=== PATIENT | male | born 1945 | race African-American/Black ===

== ENCOUNTER 2020-08-09 11:57 | Inpatient (IN) | payer SELFPAY ==
[~2020-08-09] VITALS: Ht 177.8 cm; Wt 63.5 kg
[2020-08-09] MEDS ORDERED: SUCCINYLCHOLINE CHLORIDE 200 MG/10 ML VIAL IV ONE (11:58)
[2020-08-09] MEDS ORDERED: ETOMIDATE 20 MG/10 ML VIAL IV ONE (11:58)
--- NOTE | 2020-08-09 12:07 | NUR ---
Pt BIB [address] for SOB. Pt alert and oriented x 1, pt tachyneic and heart rate irregular. Placed in 1B. Attached to bedside monitor. Dr. Vila and RT at bedside.
[2020-08-09] MEDS ORDERED: DEXAMETHASONE SOD PHOSPHATE 4 MG INJ IV ONE ×2 (12:15→18:00)
[2020-08-09] MEDS ORDERED: EPINEPHRINE 1:10,000 1 MG/10 ML DISP.SYRIN ONE (12:21)
[2020-08-09] MEDS ORDERED: DILTIAZEM HCL 25 MG IV ONE (12:23)
[2020-08-09] MEDS ORDERED: DILTIAZEM HCL 25 MG IV IV ONE (12:30)
--- NOTE | 2020-08-09 12:30 | NUR ---
Etomidate 20mg given by Dr. Vila prior to intubation.
--- NOTE | 2020-08-09 12:31 | NUR ---
succinylcholine 120mg given by Dr. Vila prior to intubation.
--- NOTE | 2020-08-09 12:33 | NUR ---
Pt intubated by Dr. Vila with 7.5 ETT, 23 cm at the the lip. RT Fitz and RT Renny present during intubation.
--- NOTE | 2020-08-09 12:35 | NUR ---
not available for ultrasound, pt is being intubated
[2020-08-09] MEDS: MIDAZOLAM HCL 50 MG in IV NORMAL SALINE 40 ML IV PRN ×5 (12:50→17:44)
--- NOTE | 2020-08-09 12:55 | NUR ---
Central line inserted by Dr. Vila
[2020-08-09 13:23] LABS: BASOPHILS # (AUTO) 0.2 K/uL (0.0-8.0); EOSINOPHILS % (AUTO) 0.1 % (0.0-7.0); HEMOGLOBIN 12.1 g/dL (12.5-16.3); LYMPHOCYTES # (AUTO) 0.4 K/uL (20.0-40.0); LYMPHOCYTES % (AUTO) 2.6 % (20.5-51.5); MEAN CORPUSCULAR HEMOGLOBIN 30.6 uug (23.8-33.4); MEAN CORPUSCULAR HGB CONC 32 g/dL (32.5-36.3); MEAN CORPUSCULAR VOLUME 96.1 fL (73.0-96.2); MONOCYTES # (AUTO) 0.9 K/uL (2.0-10.0); MONOCYTES % (AUTO) 5.3 % (0.0-11.0); NEUTROPHILS # (AUTO) 14.6 K/uL (1.8-8.9); PLATELET COUNT (AUTO) 347 K/uL (152-348); RED BLOOD CELL COUNT(AUTO) 3.95 MIL/uL (4.06-5.63); WHITE BLOOD COUNT (AUTO) 16.1 K/uL (3.6-10.2)
[2020-08-09 13:34] LABS: CARBON DIOXIDE 17 mmol/L (21-32); CHLORIDE 98 mmol/L (98-107); CREATININE 2.2 mg/dL (0.6-1.3); GLUCOSE 186 mg/dL (74-106); POTASSIUM 5.5 mmol/L (3.5-5.1); UREA NITROGEN, BLOOD 72 mg/dL (7-18)
[2020-08-09] MEDS ORDERED: FENTANYL CITRAT IV 1,000 MCG in IV NORMAL SALINE 80 ML IV PRN (13:45)
[2020-08-09] MEDS ORDERED: VANCOMYCIN IV 1,000 MG in IV DEXTROSE 5% 250 ML IV SCH (13:45)
[2020-08-09 13:47] LABS: ALANINE AMINOTRANSFERASE 21 U/L (16-63); ALKALINE PHOSPHATASE 83 U/L (50-136); ASPARTATE AMINOTRANSFERASE 39 U/L (15-37); BILIRUBIN,DIRECT 2.1 mg/dL (0.0-0.2); TOTAL PROTEIN, SERUM 6.9 g/dL (6.4-8.2)
[2020-08-09] MEDS ORDERED: PANTOPRAZOLE SODIUM 40 MG VIAL IV ONE (14:00)
[2020-08-09 14:04] LABS: ABG BASE EXCESS -9.4 mmol/L; ABG HCO3 15.9 mmol/L; ABG PH 7.301 (7.350-7.450); ABG PO2 132.5 mmHg (75.0-100.0); ABG SITE LEFT BRACHIAL; COHb 0.6 % (0.5-1.5); MetHb 0.3 % (0.0-1.5); O2Hb 97.5 % (94.0-97.0); VENT MODE VENT - A/C; VT, ABG 500 mL
[2020-08-09] MEDS ORDERED: DEXAMETHASONE SOD PHOSPHATE 10 MG INJ ONE ×2 (14:04→18:23)
[2020-08-09] MEDS ORDERED: PIPERACILLIN/TAZOBACTAM/D5W 50 ML IV ONE ×2 (14:05→22:05)
[2020-08-09] MEDS ORDERED: VANCOMYCIN IV 1,000 MG in IV DEXTROSE 5% 250 ML IV ONE (14:15)
[2020-08-09] MEDS: FENTANYL CITRAT IV 1,000 MCG in IV NORMAL SALINE 80 ML IV PRN ×2 (14:20→17:47)
[2020-08-09] MEDS: PIPERACILLIN SODIUM/TAZOBACTAM 3.375 G in IV DEXTROSE 5% 50 ML IV SCH ×2 (14:30→22:07)
--- NOTE | 2020-08-09 14:30 | NUR ---
Brower catheter inserted using sterile technique tolerated well.
[2020-08-09] MEDS ORDERED: IOHEXOL 300MG/ML 100 ML INFUS..BTL ONE (14:40)
[2020-08-09] MEDS: DEXAMETHASONE SOD PHOSPHATE 4 MG INJ IV ONE ×2 (14:40→14:42)
[2020-08-09] MEDS ORDERED: SWABABLE VALVE TRANSFER SET EA MC ONE (14:40)
[2020-08-09] MEDS ORDERED: IV NORMAL SALINE 250 ML IV ONE (14:40)
[2020-08-09] MEDS ORDERED: VANCOMYCIN IV 200 ML ONE (15:00)
--- NOTE | 2020-08-09 15:25 | NUR ---
Pt to CT on portable monitor accompanied by Renny RT and office technology instructor.
--- NOTE | 2020-08-09 15:42 | NUR ---
Returned back from CT
[2020-08-09 16:01] LABS: *BLOOD, URINE 3+ (NEGATIVE); *CLARITY,URINE CLOUDY (CLEAR); *COLOR,URINE YELLOW (YELLOW); *KETONES,URINE TRACE (NEGATIVE); *UROBILINOGEN,URINE >=8.0 E.U./dl (NORMAL); LEUKOCYTE ESTERASE ,URINE NEGATIVE (NEGATIVE); NITRITE, URINE NEGATIVE (NEGATIVE); UGLUCOSE NEGATIVE (NEGATIVE)
[2020-08-09 16:02] LABS: *BILIRUBIN,URIN 3+ (NEGATIVE)
[2020-08-09 16:10] LABS: *AMPHETAMINE, URINE NEGATIVE (NEGATIVE); *CANNABINOID, URINE NEGATIVE (NEGATIVE); *COCCAINE, URINE NEGATIVE (NEGATIVE); *OPIATE, URINE NEGATIVE (NEGATIVE); *PHENCYCLIDINE SCREEN,URINE NEGATIVE (NEGATIVE)
[2020-08-09 16:19] LABS: BACTERIA,URINE FEW /HPF (NONE SEEN); RBC,URINE 20-50 /HPF (0-3); SQUAMOUS EPITHELIAL CELL,UR FEW /HPF (NONE SEEN); URINE AMORPHOUS URATE MANY /HPF
--- NOTE | 2020-08-09 17:05 | NUR ---
OG tube inserted noted with gastic contents.
--- NOTE | 2020-08-09 18:59 | NUR ---
SBAR report given to Theo YING
[2020-08-09] MEDS ORDERED: MAGNESIUM HYDROXIDE 30 ML LIQUID UDC PO PRN (19:15)
[2020-08-09] MEDS ORDERED: ONDANSETRON 4 MG/2 ML VIAL IV PRN (19:15)
[2020-08-09] MEDS ORDERED: HYDROCODONE/APAP 5-325MG TABLET PO PRN (19:15)
[2020-08-09] MEDS ORDERED: ACETAMINOPHEN 325 MG TABLET PO PRN (19:15)
[2020-08-09] MEDS: IV NS 1000 ML 1,000 ML IV SCH (19:30)
[2020-08-09 21:20] LABS: ABG BASE EXCESS -5.1 mmol/L; ABG HCO3 22.2 mmol/L; ABG PCO2 50.9 mmHg (35.0-45.0); ABG PH 7.258 (7.350-7.450); ABG PO2 198.9 mmHg (75.0-100.0); ABG SITE RIGHT RADIAL; ABG TOTAL HEMOGLOBIN 12.4 G/dL (13.5-18.0); COHb 0.8 % (0.5-1.5); MetHb 0.3 % (0.0-1.5); O2Hb 98.3 % (94.0-97.0); VENT MODE VENT - A/C; VT, ABG 400 mL
--- NOTE | 2020-08-09 23:20 | NUR ---
Cristofer kuhn in [facility] - 08/10/20 at 0247 by KEY Called Respiratory for Ventilation Alarm, High PIP.
--- NOTE | 2020-08-09 23:20 | NUR ---
Called Respiratory for Ventilator Alarm, High PIP.
--- NOTE | 2020-08-09 23:25 | NUR ---
Called [facility] to page Dr. Cespedes.
--- NOTE | 2020-08-09 23:29 | NUR ---
Code Blue. Vault Cashier and RT at bedside, compressions started.
--- NOTE | 2020-08-09 23:46 | NUR ---
Administered epinephrine to IV right forearm 20G
--- NOTE | 2020-08-09 23:49 | NUR ---
Administered bicarb to IV on right forearm 20G Addendum: 08/10/20 at 0124 by KEY Administered Calcium carb on IV right forearm 20G
--- NOTE | 2020-08-09 23:52 | NUR ---
Administed bicarb on IV right forearm 20G, then 2nd dose of Epinephrine.
--- NOTE | 2020-08-09 23:54 | NUR ---
Administered 3rd dose of Epinephrine to IV on right forearm 20G
--- NOTE | 2020-08-09 23:55 | NUR ---
Patient shocked on Vfib.
--- NOTE | 2020-08-09 23:56 | NUR ---
Administered 4th Epinephrine on IV on right forearm 20G
--- NOTE | 2020-08-09 23:57 | NUR ---
Code Blue cleared. Patient has pulse.
[2020-08-10] MEDS ORDERED: PIPERACILLIN SODIUM/TAZOBACTAM 3.375 G in IV DEXTROSE 5% 50 ML IV SCH ×2
--- NOTE | 2020-08-10 00:03 | NUR ---
Cristofer kuhn in [facility] - 08/10/20 at 0504 by KEY Administered Amiodarone 150mg, HR 150.
--- NOTE | 2020-08-10 00:03 | NUR ---
Administered Amiodarone 150mg via IV on right forearm 20G. HR 162
[2020-08-10] MEDS ORDERED: NOREPINEPHRINE BITARTRATE 8 MG in IV NORMAL SALINE 242 ML IV PRN ×2 (00:15→10:15)
[2020-08-10] MEDS ORDERED: NOREPINEPHRINE BITARTRATE 4 MG/4 ML VIAL IV ONE (00:17)
[2020-08-10] MEDS: PANTOPRAZOLE SODIUM 40 MG VIAL IV SCH ×2 (00:50→09:00)
[2020-08-10 00:58] LABS: BASOPHILS # (AUTO) 0.1 K/uL (0.0-8.0); BASOPHILS % (AUTO) 0.4 % (0.0-2.0); EOSINOPHILS # (AUTO) 0.1 K/uL (0.0-0.7); EOSINOPHILS % (AUTO) 0.4 % (0.0-7.0); HEMATOCRIT 29.4 % (36.7-47.1); HEMOGLOBIN 9.3 g/dL (12.5-16.3); MEAN CORPUSCULAR HEMOGLOBIN 31.1 uug (23.8-33.4); MEAN CORPUSCULAR HGB CONC 32 g/dL (32.5-36.3); MEAN CORPUSCULAR VOLUME 98.5 fL (73.0-96.2); MONOCYTES # (AUTO) 0.3 K/uL (2.0-10.0); MONOCYTES % (AUTO) 2.3 % (0.0-11.0); NEUTROPHILS # (AUTO) 13.2 K/uL (1.8-8.9); NEUTROPHILS % (AUTO) 89.9 % (38.5-71.5); PLATELET COUNT (AUTO) 256 K/uL (152-348); RED BLOOD CELL COUNT(AUTO) 2.99 MIL/uL (4.06-5.63); WHITE BLOOD COUNT (AUTO) 14.7 K/uL (3.6-10.2)
[2020-08-10 01:05] LABS: CARBON DIOXIDE 22 mmol/L (21-32); CHLORIDE 103 mmol/L (98-107); CREATININE 2.6 mg/dL (0.6-1.3); GLUCOSE 238 mg/dL (74-106); POTASSIUM 5.3 mmol/L (3.5-5.1); UREA NITROGEN, BLOOD 78 mg/dL (7-18)
[2020-08-10] MEDS ORDERED: PANTOPRAZOLE SODIUM 40 MG VIAL ONE ×2 (01:39→12:34)
[2020-08-10] MEDS ORDERED: IV NORMAL SALINE 1000 ML BAG IV ONE (01:45)
[2020-08-10] MEDS ORDERED: PANTOPRAZOLE SODIUM IV 80 MG in IV DEXTROSE 5% 100 ML IV ONE (01:45)
[2020-08-10] MEDS: MIDAZOLAM HCL 50 MG in IV NORMAL SALINE 40 ML IV PRN (01:56)
--- NOTE | 2020-08-10 02:01 | NUR ---
Called [facility] to page Dr. Robby Alva.
--- NOTE | 2020-08-10 02:03 | NUR ---
Received call back from Dr. Robby Alva. New orders: Intermittent suction Protonix 40mg IV q12 hours.
[2020-08-10 03:29] LABS: HEMATOCRIT 32.6 % (36.7-47.1); HEMOGLOBIN 10.5 g/dL (12.5-16.3)
--- NOTE | 2020-08-10 06:50 | NUR ---
Report given to Roc espinosa.
[2020-08-10] MEDS ORDERED: PIPERACILLIN/TAZOBACTAM/D5W 50 ML IV ONE (06:52)
[2020-08-10] MEDS: PIPERACILLIN SODIUM/TAZOBACTAM 3.375 G in IV DEXTROSE 5% 50 ML IV SCH (06:55)
[2020-08-10] MEDS ORDERED: NOREPINEPHRINE BITARTRATE 32 MG in IV NORMAL SALINE 218 ML IV PRN (07:15)
--- NOTE | 2020-08-10 07:30 | NUR ---
PT IS RESTING IN BED 1B. NO S/S OF ACUTE DISTRESS AT THIS TIME. CONTINUE TO MONITOR THE PT.
[2020-08-10 09:24] LABS: VENT MODE VENT - A/C - PRVC; VT, ABG 400 mL
[2020-08-10] MEDS ORDERED: ENOXAPARIN SODIUM 60 MG/0.6 ML DISP.SYRIN SQ ONE ×2 (09:30→12:27)
[2020-08-10 09:43] LABS: ABG BASE EXCESS -3.4 mmol/L; ABG HCO3 23.2 mmol/L; ABG PCO2 48.6 mmHg (35.0-45.0); ABG PH 7.297 (7.350-7.450); ABG PO2 317.8 mmHg (75.0-100.0); ABG SITE LEFT BRACHIAL; ABG TOTAL HEMOGLOBIN 11.2 G/dL (13.5-18.0); COHb 0.1 % (0.5-1.5); MetHb 0.3 % (0.0-1.5); O2Hb 99.4 % (94.0-97.0)
--- NOTE | 2020-08-10 12:05 | NUR ---
SW checked in with ED RN Roc to inquire about patient's level of alertness and whether patient is able to be interviewed. Reason for social staff worker consultation is homelessness. Patient is a 75 year old male. Per ED physician's notes, patient was brought into the ED on 08/09 by paramedics for respiratory failure. STEPAN Brian stated that patient is currently intubated and sedated, and therefore not interviewable at this time. SW will follow-up with the patient at a later time.
[2020-08-10] MEDS: PIPERACILLIN/TAZO 2.25 G in IV DEXTROSE 5% 50 ML IV SCH ×2 (12:26→18:12)
[2020-08-10] MEDS: IV NS 1000 ML 1,000 ML IV SCH (12:40)
[2020-08-10 15:14] LABS: ALANINE AMINOTRANSFERASE 37 U/L (16-63); ALKALINE PHOSPHATASE 84 U/L (50-136); ASPARTATE AMINOTRANSFERASE 71 U/L (15-37); BASOPHILS # (AUTO) 0.1 K/uL (0.0-8.0); BASOPHILS % (AUTO) 0.7 % (0.0-2.0); BILIRUBIN,TOTAL 1.5 mg/dL (0.2-1.0); CARBON DIOXIDE 26 mmol/L (21-32); CHLORIDE 104 mmol/L (98-107); CHOLESTEROL 103 mg/dL (<200); CREATININE 2.8 mg/dL (0.6-1.3); GLUCOSE 189 mg/dL (74-106); HDL CHOLESTEROL 13 mg/dL (40-60); HEMATOCRIT 33.2 % (36.7-47.1); HEMOGLOBIN 10.6 g/dL (12.5-16.3); LYMPHOCYTES # (AUTO) 0.5 K/uL (20.0-40.0); LYMPHOCYTES % (AUTO) 2.6 % (20.5-51.5); MAGNESIUM 2.7 mg/dL (1.8-2.4); MEAN CORPUSCULAR HEMOGLOBIN 30.8 uug (23.8-33.4); MEAN CORPUSCULAR HGB CONC 32 g/dL (32.5-36.3); MEAN CORPUSCULAR VOLUME 96.3 fL (73.0-96.2); MONOCYTES # (AUTO) 0.9 K/uL (2.0-10.0); MONOCYTES % (AUTO) 5.1 % (0.0-11.0); NEUTROPHILS % (AUTO) 91.6 % (38.5-71.5); PHOSPHOROUS 6.7 mg/dL (2.5-4.9); PLATELET COUNT (AUTO) 226 K/uL (152-348); POTASSIUM 5.3 mmol/L (3.5-5.1); RED BLOOD CELL COUNT(AUTO) 3.45 MIL/uL (4.06-5.63); TOTAL PROTEIN, SERUM 6.1 g/dL (6.4-8.2); TRIGLYCERIDES 118 MG/DL (30-150); WHITE BLOOD COUNT (AUTO) 18.5 K/uL (3.6-10.2)
[2020-08-10 15:21] LABS: UREA NITROGEN, BLOOD 83 mg/dL (7-18)
--- NOTE | 2020-08-10 15:21 | NUR ---
Recieved critical BUN of 83 and lactic 2.4 Roc, primary RN made aware. Stated he'd follow up with .
[2020-08-10] MEDS ORDERED: VANCOMYCIN IV 750 MG in IV DEXTROSE 5% 250 ML IV ONE (15:30)
[2020-08-10] MEDS ORDERED: IV NORMAL SALINE 500 ML IV ONE (15:45)
[2020-08-10] MEDS ORDERED: IV NS 1000 ML 1,000 ML IV PRN (15:45)
[2020-08-10] MEDS ORDERED: PIPERACILLIN/TAZOBACTAM/D5W 50 ML ONE (18:10)
--- NOTE | 2020-08-10 18:57 | NUR ---
REPORT GIVEN TO OIL FILTERS INSPECTORLAY OUT FORMER.
--- NOTE | 2020-08-10 19:30 | NUR ---
Patient is resting in bed sedated, no signs of distress.
[2020-08-11] VITALS (15 sets, daily range): BP systolic 88–136; BP diastolic 30–89
[2020-08-11] MEDS ORDERED: PANTOPRAZOLE SODIUM 40 MG VIAL ONE ×2 (00:36→09:05)
[2020-08-11] MEDS ORDERED: PIPERACILLIN/TAZOBACTAM/D5W 50 ML ONE ×2 (00:37→09:03)
[2020-08-11] MEDS: PIPERACILLIN/TAZO 2.25 G in IV DEXTROSE 5% 50 ML IV SCH ×5 (00:50→23:45)
[2020-08-11] MEDS ORDERED: EPINEPHRINE 1:10,000 1 MG/10 ML DISP.SYRIN IV ONE (06:00)
[2020-08-11] MEDS ORDERED: CALCIUM CHLORIDE 1 GM/10 ML DISP.SYRIN IV ONE (06:00)
[2020-08-11] MEDS ORDERED: SODIUM BICARBONATE 8.4% 50 MEQ/50 ML DISP.SYRIN IV ONE (06:00)
[2020-08-11] MEDS ORDERED: AMIODARONE HCL 150 MG/3 ML VIAL IV ONE (06:00)
[2020-08-11 07:23] LABS: HEMATOCRIT 31.8 % (36.7-47.1); HEMOGLOBIN 10.1 g/dL (12.5-16.3); LYMPHOCYTES # (AUTO) 0.6 K/uL (20.0-40.0); LYMPHOCYTES % (AUTO) 2.8 % (20.5-51.5); MEAN CORPUSCULAR HEMOGLOBIN 31.1 uug (23.8-33.4); MEAN CORPUSCULAR HGB CONC 32 g/dL (32.5-36.3); MEAN CORPUSCULAR VOLUME 97.5 fL (73.0-96.2); MONOCYTES % (AUTO) 4.6 % (0.0-11.0); NEUTROPHILS # (AUTO) 20.3 K/uL (1.8-8.9); NEUTROPHILS % (AUTO) 92.6 % (38.5-71.5); PLATELET COUNT (AUTO) 222 K/uL (152-348); RED BLOOD CELL COUNT(AUTO) 3.26 MIL/uL (4.06-5.63); WHITE BLOOD COUNT (AUTO) 21.9 K/uL (3.6-10.2)
[2020-08-11 08:04] LABS: ABG BASE EXCESS -7.4 mmol/L; ABG HCO3 21.5 mmol/L; ABG PCO2 60.7 mmHg (35.0-45.0); ABG PH 7.168 (7.350-7.450); ABG PO2 128.7 mmHg (75.0-100.0); ABG SITE RIGHT RADIAL; ABG TOTAL HEMOGLOBIN 11.1 G/dL (13.5-18.0); COHb 0.2 % (0.5-1.5); MetHb 0.4 % (0.0-1.5); O2Hb 97.8 % (94.0-97.0); VENT MODE PRVC AC
[2020-08-11 08:07] LABS: CARBON DIOXIDE 22 mmol/L (21-32); CHLORIDE 104 mmol/L (98-107); GLUCOSE 131 mg/dL (74-106); MAGNESIUM 2.7 mg/dL (1.8-2.4); PHOSPHOROUS 7.2 mg/dL (2.5-4.9); POTASSIUM 5.5 mmol/L (3.5-5.1); VANCOMYCIN,RANDOM 18.5 ug/mL (18.0-26.0)
[2020-08-11 08:13] LABS: UREA NITROGEN, BLOOD 80 mg/dL (7-18)
--- NOTE | 2020-08-11 08:40 | NUR ---
Moved pt from room 1B to 4A. All systems okay.
[2020-08-11] MEDS: PANTOPRAZOLE SODIUM 40 MG VIAL IV SCH ×2 (09:20→20:40)
--- NOTE | 2020-08-11 09:28 | NUR ---
AUGUSTUS Lugo, called back. Gave him results of ABG.
--- NOTE | 2020-08-11 11:44 | NUR ---
Called pharmacy again to get Lovenox for pt. They stated they would bring it shortly.
[2020-08-11] MEDS: ENOXAPARIN SODIUM 60 MG/0.6 ML DISP.SYRIN SQ SCH (11:53)
[2020-08-11] MEDS ORDERED: ENOXAPARIN SODIUM 60 MG/0.6 ML DISP.SYRIN SQ ONE (11:55)
--- NOTE | 2020-08-11 13:10 | NUR ---
Pt PCR covid test was POSITIVE, Pt moved to room 3 for isolation. All systems okay. ICU not ready to accept pt yet.
[2020-08-11] MEDS ORDERED: SODIUM POLYSTYRENE SULFONATE 15 G/60 ML LIQUID UDC NG ONE (13:45)
[2020-08-11] MEDS ORDERED: VANCOMYCIN IV 500 MG in IV DEXTROSE 5% 100 ML IV ONE (14:00)
[2020-08-11] MEDS ORDERED: SODIUM POLYSTYRENE SULFONATE 15 G/60 ML LIQUID UDC ONE (14:03)
[2020-08-11] MEDS: MIDAZOLAM HCL 50 MG in IV NORMAL SALINE 40 ML IV PRN (15:16)
--- NOTE | 2020-08-11 15:16 | NUR ---
Changed out bag of Versed for new one (empty).
--- NOTE | 2020-08-11 15:31 | NUR ---
changed out empty FENTANYL bag for new one. changed out empty LEVOPHED bottle for new one.
[2020-08-11] MEDS: FENTANYL CITRAT IV 1,000 MCG in IV NORMAL SALINE 80 ML IV PRN (15:41)
--- NOTE | 2020-08-11 16:16 | NUR ---
Called report to STEPAN Browning
--- NOTE | 2020-08-11 17:00 | NUR ---
Dr. Rincon in the unit when pt got admitted.. report given
--- NOTE | 2020-08-11 18:16 | NUR ---
received pt from ER. noted with rectal temp 95.2. per nursing route supervisor, no heating machine/blankets available as all are in use. pt noted with HR in the 140s, informed Dr. Mcdonald with new order for stat ECG. ECG result relayed to Dr. Mcdonald
--- NOTE | 2020-08-11 18:32 | NUR ---
STAT ECH showing afib with RVR relayed to Dr. Ernst with new order for Amio bolus and per protoccol Addendum: 08/11/20 at 1835 by FEDERICO ARIAS RN STAT ECG
[2020-08-11] MEDS ORDERED: AMIODARONE HCL IV 150 MG in IV DEXTROSE 5% 100 ML IV ONE (18:45)
--- NOTE | 2020-08-11 18:56 | NUR ---
pt admitted from ER at around 1700. pt noted with excoriation/skin tear on penis & scrotum, full thickness loss on sacrococcyx area. endorsed to slot shift manager RN Brigette to take pictures. Amio bolus and drip not started, awaiting for pharmacy to deliver medications. endorse to nigiht shift to give when delivered
--- NOTE | 2020-08-11 19:18 | NUR ---
shift report given to retail shift leader RN Brigette.
--- NOTE | 2020-08-11 19:30 | NUR ---
Report received. Patient on COVId-19 isolation orally intubated and to mechanical ventilator. On continuous Fentanyl and Versed drips for sedation. HR 140's; Amiodarone bolus started. Also on Levophed drip for BP support. Assessment done; see flow sheet for complete documentation. Addendum: 08/12/20 at 0657 by FANI STEWART RN Amended: Links added.
[2020-08-11] MEDS: SODIUM BICARBONATE 8.4% 100 MEQ in IV 1/2NS 1000 ML 1,000 ML IV PRN (19:47)
[2020-08-11] MEDS: AMIODARONE HCL IV 450 MG in IV DEXTROSE 5% 250 ML IV PRN (19:51)
[2020-08-11] MEDS ORDERED: PHENYLEPHRINE 10 MG/1 ML VIAL ONE (20:56)
[2020-08-11] MEDS: PHENYLEPHRINE IV 50 MG in IV NORMAL SALINE 245 ML IV PRN (21:00)
--- NOTE | 2020-08-11 21:26 | NUR ---
Converted to SR with PVCs rate in the 80's. Addendum: 08/12/20 at 0652 by FANI STEWART RN Amended: Links added. Addendum: 08/12/20 at 0657 by FANI STEWART RN Amended: Links added.
[2020-08-11] MEDS: methylPREDNISolone SOD SUCC 125 MG/2 ML VIAL IV SCH (21:32)
[2020-08-11] MEDS ORDERED: Z GUARD REMEDY PASTE 57 GM TUBE TOP PRN (22:30)
[2020-08-12] VITALS (48 sets, daily range): BP systolic 82–122; BP diastolic 43–76
[2020-08-12] MEDS: AMIODARONE HCL IV 450 MG in IV DEXTROSE 5% 250 ML IV PRN ×2 (04:01→17:59)
[2020-08-12] MEDS: MIDAZOLAM HCL 50 MG in IV NORMAL SALINE 40 ML IV PRN (04:50)
[2020-08-12] MEDS: PIPERACILLIN/TAZO 2.25 G in IV DEXTROSE 5% 50 ML IV SCH ×4 (05:51→23:41)
[2020-08-12] MEDS: methylPREDNISolone SOD SUCC 125 MG/2 ML VIAL IV SCH ×3 (05:51→21:47)
--- NOTE | 2020-08-12 06:00 | NUR ---
Remains on same vent settings. O2 saturations above 94%. On: Neosynephrine drip @ 1.4 mcg/kg/min Fentanyl drip 50 mcg/H Versed drip 2 mg/H. Amiodarone drip 0.5mcg/min 1/2 NS with 2 amps of NaHCO3 @ 100ml/H See IV spread sheet for dosages/rates
[2020-08-12] MEDS: FENTANYL CITRAT IV 1,000 MCG in IV NORMAL SALINE 80 ML IV PRN (06:10)
[2020-08-12] MEDS: SODIUM BICARBONATE 8.4% 100 MEQ in IV 1/2NS 1000 ML 1,000 ML IV PRN ×2 (06:43→17:58)
[2020-08-12] MEDS: PANTOPRAZOLE SODIUM 40 MG VIAL IV SCH ×2 (08:14→20:38)
[2020-08-12] MEDS: ENOXAPARIN SODIUM 60 MG/0.6 ML DISP.SYRIN SQ SCH (08:15)
[2020-08-12] MEDS: Z GUARD REMEDY PASTE 57 GM TUBE TOP SCH ×2 (08:15→20:39)
[2020-08-12] MEDS: PHENYLEPHRINE IV 50 MG in IV NORMAL SALINE 245 ML IV PRN ×2 (08:44→19:48)
[2020-08-12 09:02] LABS: ABG BASE EXCESS -5.5 mmol/L; ABG HCO3 22.2 mmol/L; ABG PCO2 54.7 mmHg (35.0-45.0); ABG PH 7.227 (7.350-7.450); ABG PO2 141.4 mmHg (75.0-100.0); ABG SITE LEFT RADIAL; ABG TOTAL HEMOGLOBIN 10.2 G/dL (13.5-18.0); COHb 0.3 % (0.5-1.5); MetHb 0.4 % (0.0-1.5); O2Hb 98.2 % (94.0-97.0); VENT MODE VENT - A/C; VT, ABG 400 mL
[2020-08-12 13:26] LABS: BASOPHILS % (AUTO) 0.1 % (0.0-2.0); HEMATOCRIT 27.5 % (36.7-47.1); HEMOGLOBIN 8.8 g/dL (12.5-16.3); LYMPHOCYTES # (AUTO) 0.3 K/uL (20.0-40.0); LYMPHOCYTES % (AUTO) 1.9 % (20.5-51.5); MEAN CORPUSCULAR HEMOGLOBIN 30.8 uug (23.8-33.4); MEAN CORPUSCULAR HGB CONC 32 g/dL (32.5-36.3); MEAN CORPUSCULAR VOLUME 95.9 fL (73.0-96.2); MONOCYTES # (AUTO) 0.2 K/uL (2.0-10.0); MONOCYTES % (AUTO) 1.1 % (0.0-11.0); NEUTROPHILS # (AUTO) 16.2 K/uL (1.8-8.9); NEUTROPHILS % (AUTO) 96.9 % (38.5-71.5); PLATELET COUNT (AUTO) 148 K/uL (152-348); RED BLOOD CELL COUNT(AUTO) 2.87 MIL/uL (4.06-5.63); WHITE BLOOD COUNT (AUTO) 16.7 K/uL (3.6-10.2)
[2020-08-12 13:35] LABS: CARBON DIOXIDE 25 mmol/L (21-32); CHLORIDE 106 mmol/L (98-107); CREATININE 3.6 mg/dL (0.6-1.3); GLUCOSE 157 mg/dL (74-106); MAGNESIUM 2.6 mg/dL (1.8-2.4); POTASSIUM 5.2 mmol/L (3.5-5.1); VANCOMYCIN,RANDOM 18.6 ug/mL (18.0-26.0)
[2020-08-12 13:41] LABS: UREA NITROGEN, BLOOD 83 mg/dL (7-18)
--- NOTE | 2020-08-12 14:45 | NUR ---
PT.WAS SEEN BY BOB GIORDANO MD WITH NEW ORDERS.
--- NOTE | 2020-08-12 16:15 | NUR ---
DR.RAFFI BASILIO AT BEDSIDE,FOR HD ACC.INSERTION. TIME OUT DONE. UNABLE TO GET CONSENT,NO FAMILY.
--- NOTE | 2020-08-12 17:40 | NUR ---
PT. WAS SEEN BY ANGUS FARLEY MD
[2020-08-12] MEDS: AMIODARONE HCL 200 MG TABLET PO SCH (20:38)
[2020-08-13] VITALS (32 sets, daily range): BP systolic 102–152; BP diastolic 60–88
[2020-08-13] MEDS: FENTANYL CITRAT IV 1,000 MCG in IV NORMAL SALINE 80 ML IV PRN ×3 (02:17→23:02)
[2020-08-13] MEDS: Z GUARD REMEDY PASTE 57 GM TUBE TOP PRN (02:17)
[2020-08-13] MEDS: SODIUM BICARBONATE 8.4% 100 MEQ in IV 1/2NS 1000 ML 1,000 ML IV PRN (04:14)
[2020-08-13 05:15] LABS: BASOPHILS % (AUTO) 0.1 % (0.0-2.0); HEMATOCRIT 27.6 % (36.7-47.1); LYMPHOCYTES # (AUTO) 0.3 K/uL (20.0-40.0); LYMPHOCYTES % (AUTO) 1.5 % (20.5-51.5); MEAN CORPUSCULAR HEMOGLOBIN 31.2 uug (23.8-33.4); MEAN CORPUSCULAR HGB CONC 33 g/dL (32.5-36.3); MEAN CORPUSCULAR VOLUME 95.8 fL (73.0-96.2); MONOCYTES # (AUTO) 0.3 K/uL (2.0-10.0); MONOCYTES % (AUTO) 1.6 % (0.0-11.0); NEUTROPHILS # (AUTO) 17.6 K/uL (1.8-8.9); NEUTROPHILS % (AUTO) 96.8 % (38.5-71.5); PLATELET COUNT (AUTO) 146 K/uL (152-348); RED BLOOD CELL COUNT(AUTO) 2.88 MIL/uL (4.06-5.63); WHITE BLOOD COUNT (AUTO) 18.2 K/uL (3.6-10.2)
[2020-08-13] MEDS: PIPERACILLIN/TAZO 2.25 G in IV DEXTROSE 5% 50 ML IV SCH ×3 (05:21→22:28)
[2020-08-13] MEDS: methylPREDNISolone SOD SUCC 125 MG/2 ML VIAL IV SCH ×2 (05:21→13:03)
[2020-08-13 05:29] LABS: CARBON DIOXIDE 27 mmol/L (21-32); CHLORIDE 104 mmol/L (98-107); CREATININE 3.7 mg/dL (0.6-1.3); GLUCOSE 147 mg/dL (74-106); MAGNESIUM 2.6 mg/dL (1.8-2.4); PHOSPHOROUS 5.4 mg/dL (2.5-4.9); POTASSIUM 4.7 mmol/L (3.5-5.1); UREA NITROGEN, BLOOD 79 mg/dL (7-18)
--- NOTE | 2020-08-13 07:03 | NUR ---
Condition unchanged. Remains on same vent settings: AC=28, IE=226xg, PEEP=10 and FIO2=60%. O2 saturations above 95%. air sampling and monitoring: SR-ST with rare PVCs, PACs. Off Amiodarone drip since 209908/12/20; on Amiodarone via NGT. Adequately sedated with Diprivan drip at 50 mcg/kg/min. COVID isolation maintained. Addendum: 08/13/20 at 0704 by FANI STEWART RN Amended: Links added. Addendum: 08/13/20 at 0705 by FANI STEWART RN Notes is for another patient.
--- NOTE | 2020-08-13 07:05 | NUR ---
Remains on same vent settings: AC=24, SG=766uw, FIO2=50% and PEEP=5, O2 sats above 95%. BPs stable; off Neosynephrine drip since midnight. Also off Amidarone drip since 2100; on Amiodarone/NGT. On continuous Versed and Fentanyl drips at 3 mg/H and 50 mcg/H respectively.
[2020-08-13] MEDS: MIDAZOLAM HCL 50 MG in IV NORMAL SALINE 40 ML IV PRN ×2 (07:21→23:30)
[2020-08-13] MEDS: AMIODARONE HCL 200 MG TABLET PO SCH ×2 (08:20→20:29)
[2020-08-13] MEDS: PANTOPRAZOLE SODIUM 40 MG VIAL IV SCH (08:20)
[2020-08-13] MEDS: Z GUARD REMEDY PASTE 57 GM TUBE TOP SCH ×2 (08:21→20:31)
[2020-08-13 09:40] LABS: ABG BASE EXCESS -0.4 mmol/L; ABG HCO3 25.2 mmol/L; ABG PCO2 45.5 mmHg (35.0-45.0); ABG PH 7.361 (7.350-7.450); ABG PO2 75.7 mmHg (75.0-100.0); ABG SITE RIGHT RADIAL; ABG TOTAL HEMOGLOBIN 10.8 G/dL (13.5-18.0); COHb 0.1 % (0.5-1.5); MetHb 0.3 % (0.0-1.5); O2Hb 94.2 % (94.0-97.0); VENT MODE VENT - PRVC - A/C; VT, ABG 400 mL
--- NOTE | 2020-08-13 11:49 | NUR ---
WOUND CARE CONSULT: REVIEWED CHART, NURSING DOCUMENTATION AND PHOTOS WHICH INDICATE RASHES AND DEEP TISSUE INJURY TO SACRUM WHICH EXTENDS TO BUTTOCKS. RECOMMENDATIONS MADE FOR SKIN PROTECTION AND WOUND CARE. RECOMMEND SURGICAL CONSULT. DISCUSSED WITH NURSING STAFF AND Deandre ORELLANA SURGICAL Sheela.ACole SARABIA IN AGREEMENT WITH PLAN OF CARE. PT IS ON FIRST STEP LOW AIRLOSS MATTRESS. PT NOTED TO HAVE MULTIPLE CO-MORIBIDITIES INCLUDING SHOCK AND COVID PNEUMONIA.
--- NOTE | 2020-08-13 12:27 | NUR ---
PT.WAS SEEN BY RISHI JULIAN NP WITH NEW ORDERS.
--- NOTE | 2020-08-13 13:10 | NUR ---
PT.WAS SEEN BY JONAS JETER DNP
--- NOTE | 2020-08-13 13:58 | NUR ---
PT.WAS SEEN BY
[2020-08-13] MEDS: HEPARIN SODIUM,PORCINE 5,000 UNITS/ML VIAL SQ SCH ×2 (14:48→22:27)
[2020-08-13] MEDS: NEPRO 1000 ML NG PRN (15:05)
[2020-08-13] MEDS: CLOTRIMAZOLE 1% CREAM 30 GM TUBE TOP SCH (16:26)
--- NOTE | 2020-08-13 20:00 | NUR ---
ROUNDS MADE PATIENT IN BED ORALLY INTUBATED . TOLERATING VENT SETTING . AC24/400/50% PEEP 5. SEDATED ON FENTANYL + VERSED, SUCTION PATIENT ORALLY AND VIA ETT .TF IN PROGRESS ON NEPRO 20 CC/HR GOAL 40 ML ,FLUSHED OGT TUBE WITH WATER PATENT .V/S MONITORING DONE DUE MEDICATION GIVEN .
--- NOTE | 2020-08-13 21:36 | NUR ---
DUE MEDICATION GIVEN AND SCAN MEDS SEE EMAR.
[2020-08-13] MEDS: methylPREDNISolone SOD SUCC 40 MG/ML VIAL IV SCH (22:24)
[2020-08-14] VITALS (24 sets, daily range): BP systolic 95–149; BP diastolic 55–78
[2020-08-14] MEDS: methylPREDNISolone SOD SUCC 40 MG/ML VIAL IV SCH ×3 (05:06→21:52)
[2020-08-14] MEDS: PIPERACILLIN/TAZO 2.25 G in IV DEXTROSE 5% 50 ML IV SCH ×3 (05:08→21:52)
[2020-08-14 06:21] LABS: CARBON DIOXIDE 31 mmol/L (21-32); CHLORIDE 106 mmol/L (98-107); CREATININE 3.9 mg/dL (0.6-1.3); GLUCOSE 187 mg/dL (74-106); POTASSIUM 4.6 mmol/L (3.5-5.1)
[2020-08-14 06:23] LABS: UREA NITROGEN, BLOOD 89 mg/dL (7-18)
[2020-08-14 07:54] LABS: BASOPHILS % (AUTO) 0.2 % (0.0-2.0); HEMATOCRIT 29.4 % (36.7-47.1); HEMOGLOBIN 9.6 g/dL (12.5-16.3); LYMPHOCYTES # (AUTO) 0.2 K/uL (20.0-40.0); LYMPHOCYTES % (AUTO) 1.3 % (20.5-51.5); MEAN CORPUSCULAR HEMOGLOBIN 31.1 uug (23.8-33.4); MEAN CORPUSCULAR HGB CONC 33 g/dL (32.5-36.3); MEAN CORPUSCULAR VOLUME 95.1 fL (73.0-96.2); MONOCYTES # (AUTO) 0.3 K/uL (2.0-10.0); MONOCYTES % (AUTO) 1.6 % (0.0-11.0); NEUTROPHILS # (AUTO) 15.4 K/uL (1.8-8.9); NEUTROPHILS % (AUTO) 96.9 % (38.5-71.5); PLATELET COUNT (AUTO) 134 K/uL (152-348); RED BLOOD CELL COUNT(AUTO) 3.09 MIL/uL (4.06-5.63); WHITE BLOOD COUNT (AUTO) 15.9 K/uL (3.6-10.2)
[2020-08-14 08:35] LABS: ABG BASE EXCESS 1.5 mmol/L; ABG HCO3 28.2 mmol/L; ABG PCO2 54.7 mmHg (35.0-45.0); ABG PO2 102.1 mmHg (75.0-100.0); ABG SITE RIGHT RADIAL; ABG TOTAL HEMOGLOBIN 11.2 G/dL (13.5-18.0); COHb 0.7 % (0.5-1.5); MetHb 0.4 % (0.0-1.5); O2Hb 96.4 % (94.0-97.0); VENT MODE VENT - A/C; VT, ABG 400 mL
[2020-08-14] MEDS: HEPARIN SODIUM,PORCINE 5,000 UNITS/ML VIAL SQ SCH ×2 (08:48→20:26)
[2020-08-14] MEDS: NEPRO 1000 ML NG PRN (08:48)
[2020-08-14] MEDS: FAMOTIDINE. 20 MG/2 ML VIAL IV SCH (08:48)
[2020-08-14] MEDS: Z GUARD REMEDY PASTE 57 GM TUBE TOP SCH ×2 (08:49→20:26)
[2020-08-14] MEDS: AMIODARONE HCL 200 MG TABLET PO SCH ×2 (09:33→20:23)
[2020-08-14] MEDS: CLOTRIMAZOLE 1% CREAM 30 GM TUBE TOP SCH ×2 (09:35→17:15)
--- NOTE | 2020-08-14 10:40 | NUR ---
AUGUSTUS Marks to see pt. report given
--- NOTE | 2020-08-14 11:04 | NUR ---
DERICK Berrios in the unit to see pt. full report given
--- NOTE | 2020-08-14 13:53 | NUR ---
Dr. Rincon in the unit to see & assess pt. full report given
--- NOTE | 2020-08-14 14:15 | NUR ---
tidal volume changed to 450 by RT as per Dr. Rincon's order
[2020-08-14] MEDS: FENTANYL CITRAT IV 1,000 MCG in IV NORMAL SALINE 80 ML IV PRN (18:36)
--- NOTE | 2020-08-14 19:00 | NUR ---
Received patient from AM nurse. Safety measures in place. Will continue plan of care as directed. Versed running at 3mg/hr -- Fentanyl running at 50 mcg. Lines intact. Will monitor and assess.
--- NOTE | 2020-08-14 21:00 | NUR ---
Patient seemed to have feeding come out of his mouth. Feeding stopped immediately. Will endorse to AM to check chest xray to confirm placement of OG-Tube prior to restarting Tube Feeding.
[2020-08-15] VITALS (24 sets, daily range): BP systolic 109–147; BP diastolic 60–93
--- NOTE | 2020-08-15 02:39 | NUR ---
Patient had brief period (30 minutes) of Atrial Flutter -- Asymptomatic -- Back to Sinus Rhythm
[2020-08-15] MEDS: methylPREDNISolone SOD SUCC 40 MG/ML VIAL IV SCH ×3 (05:47→22:03)
[2020-08-15] MEDS: PIPERACILLIN/TAZO 2.25 G in IV DEXTROSE 5% 50 ML IV SCH ×2 (05:47→14:02)
[2020-08-15 06:04] LABS: BASOPHILS % (AUTO) 0.1 % (0.0-2.0); HEMATOCRIT 31.1 % (36.7-47.1); HEMOGLOBIN 10.3 g/dL (12.5-16.3); LYMPHOCYTES # (AUTO) 0.2 K/uL (20.0-40.0); LYMPHOCYTES % (AUTO) 1.3 % (20.5-51.5); MEAN CORPUSCULAR HEMOGLOBIN 31.7 uug (23.8-33.4); MEAN CORPUSCULAR HGB CONC 33 g/dL (32.5-36.3); MEAN CORPUSCULAR VOLUME 95.4 fL (73.0-96.2); MONOCYTES # (AUTO) 0.4 K/uL (2.0-10.0); MONOCYTES % (AUTO) 2.7 % (0.0-11.0); NEUTROPHILS # (AUTO) 13.9 K/uL (1.8-8.9); NEUTROPHILS % (AUTO) 95.9 % (38.5-71.5); PLATELET COUNT (AUTO) 131 K/uL (152-348); RED BLOOD CELL COUNT(AUTO) 3.26 MIL/uL (4.06-5.63); WHITE BLOOD COUNT (AUTO) 14.5 K/uL (3.6-10.2)
[2020-08-15 06:16] LABS: CARBON DIOXIDE 31 mmol/L (21-32); CHLORIDE 108 mmol/L (98-107); CREATININE 3.7 mg/dL (0.6-1.3); GLUCOSE 212 mg/dL (74-106); MAGNESIUM 2.6 mg/dL (1.8-2.4); PHOSPHOROUS 4.9 mg/dL (2.5-4.9); POTASSIUM 4.5 mmol/L (3.5-5.1)
[2020-08-15 06:18] LABS: UREA NITROGEN, BLOOD 102 mg/dL (7-18)
[2020-08-15 06:26] LABS: ABG BASE EXCESS -1.7 mmol/L; ABG HCO3 25.1 mmol/L; ABG PCO2 50.6 mmHg (35.0-45.0); ABG PH 7.313 (7.350-7.450); ABG PO2 158.6 mmHg (75.0-100.0); ABG SITE RIGHT RADIAL; ABG TOTAL HEMOGLOBIN 14.3 G/dL (13.5-18.0); COHb 0.6 % (0.5-1.5); MetHb 0.3 % (0.0-1.5); O2Hb 98.3 % (94.0-97.0); VENT MODE VENT - A/C; VT, ABG 450 mL
[2020-08-15] MEDS: MIDAZOLAM HCL 50 MG in IV NORMAL SALINE 40 ML IV PRN ×2 (06:57→15:02)
--- NOTE | 2020-08-15 07:16 | NUR ---
Patient handed off to AM nurse. Hemodynamically stable. VSS. No distress. Safety measures in place. Plan of care continued. Will monitor and assess.
[2020-08-15] MEDS: FAMOTIDINE. 20 MG/2 ML VIAL IV SCH (08:25)
[2020-08-15] MEDS: AMIODARONE HCL 200 MG TABLET PO SCH ×2 (08:25→20:05)
[2020-08-15] MEDS: HEPARIN SODIUM,PORCINE 5,000 UNITS/ML VIAL SQ SCH ×2 (08:26→20:06)
[2020-08-15] MEDS: Z GUARD REMEDY PASTE 57 GM TUBE TOP SCH ×2 (08:26→20:05)
[2020-08-15] MEDS: CLOTRIMAZOLE 1% CREAM 30 GM TUBE TOP SCH ×2 (08:27→16:55)
[2020-08-15] MEDS: NEPRO 1000 ML NG PRN (09:03)
--- NOTE | 2020-08-15 09:15 | NUR ---
AUGUSTUS Ang in the unit to see pt. full report given. per PROFESSIONAL SECURITY OFFICER, pt might need dialysis in the next few days but not today
--- NOTE | 2020-08-15 10:29 | NUR ---
Dr Rincon in the unit to see & assess pt with new orders. full report given Addendum: 08/15/20 at 1030 by FEDERICO ARIAS RN FiO2 decreased to 40% by RT. Dr. Rincon in the unit and aware of new change in vent setting
[2020-08-15] MEDS: FENTANYL CITRAT IV 1,000 MCG in IV NORMAL SALINE 80 ML IV PRN (15:02)
--- NOTE | 2020-08-15 19:14 | NUR ---
shift report given to shift superintendent caustic cresylate RN. VSS. vent settings AC 24 TV 450 Peep 5, FiO2 30%. Pt on Versed @3mg/hr and Fentanyl @50mcg, NS TKO
--- NOTE | 2020-08-15 19:30 | NUR ---
Report received. Patient on COVID isolation, orally intubated and to mechanical ventilator with settings: AC=24, TV+450, PEEP=5 and FIO2=30%. O2 saturations above 95%. On continuous sedation with Versed drip at 3 mg/H and Fentanyl drip at 50 mcg/H. With facial grimacing to oral suctioning; with thin white to vazquez secretions. Cough effort weak. playground monitor: SR rate in the 80's with PVcs and PACs. Addendum: 08/15/20 at 2237 by FANI STEWART RN Amended: Links added. Addendum: 08/15/20 at 2237 by FANI STEWART RN Amended: Links added.
[2020-08-15] MEDS ORDERED: CEFEPIME HCL 1 G in IV DEXTROSE 5% 50 ML IV SCH (20:45)
[2020-08-15] MEDS ORDERED: CEFEPIME HCL 1 G VIAL ONE (21:38)
[2020-08-16] VITALS (25 sets, daily range): BP systolic 109–159; BP diastolic 64–100
[2020-08-16] MEDS: IV NORMAL SALINE 250 ML IV PRN (04:26)
[2020-08-16] MEDS: Z GUARD REMEDY PASTE 57 GM TUBE TOP PRN (04:29)
[2020-08-16 05:06] LABS: BASOPHILS % (AUTO) 0.2 % (0.0-2.0); HEMATOCRIT 31.2 % (36.7-47.1); HEMOGLOBIN 10.3 g/dL (12.5-16.3); LYMPHOCYTES # (AUTO) 0.3 K/uL (20.0-40.0); LYMPHOCYTES % (AUTO) 1.5 % (20.5-51.5); MEAN CORPUSCULAR HEMOGLOBIN 31.4 uug (23.8-33.4); MEAN CORPUSCULAR HGB CONC 33 g/dL (32.5-36.3); MONOCYTES # (AUTO) 0.5 K/uL (2.0-10.0); MONOCYTES % (AUTO) 2.8 % (0.0-11.0); NEUTROPHILS # (AUTO) 16.4 K/uL (1.8-8.9); NEUTROPHILS % (AUTO) 95.5 % (38.5-71.5); PLATELET COUNT (AUTO) 113 K/uL (152-348); RED BLOOD CELL COUNT(AUTO) 3.28 MIL/uL (4.06-5.63); WHITE BLOOD COUNT (AUTO) 17.1 K/uL (3.6-10.2)
[2020-08-16] MEDS: methylPREDNISolone SOD SUCC 40 MG/ML VIAL IV SCH ×2 (05:10→14:00)
[2020-08-16 05:53] LABS: CARBON DIOXIDE 33 mmol/L (21-32); CHLORIDE 110 mmol/L (98-107); CREATININE 3.9 mg/dL (0.6-1.3); FERRITIN 1923 ng/mL (26-388); GLUCOSE 186 mg/dL (74-106); LACTATE DEHYDROGENASE 440 U/L (85-227); MAGNESIUM 2.5 mg/dL (1.8-2.4); PHOSPHOROUS 3.6 mg/dL (2.5-4.9); POTASSIUM 4.6 mmol/L (3.5-5.1); UREA NITROGEN, BLOOD 113 mg/dL (7-18)
--- NOTE | 2020-08-16 06:56 | NUR ---
Remains on same vent settings; CPAP at 0900. Fentanyl drip titrated. O2 sat maintaining above 94%. Addendum: 08/16/20 at 0657 by FANI STEWART RN Amended: Links added.
[2020-08-16] MEDS: FAMOTIDINE. 20 MG/2 ML VIAL IV SCH (08:56)
[2020-08-16] MEDS: AMIODARONE HCL 200 MG TABLET PO SCH ×2 (08:56→20:46)
[2020-08-16] MEDS: CLOTRIMAZOLE 1% CREAM 30 GM TUBE TOP SCH ×2 (08:57→17:53)
[2020-08-16] MEDS: Z GUARD REMEDY PASTE 57 GM TUBE TOP SCH ×2 (08:57→20:40)
[2020-08-16] MEDS: NEPRO 1000 ML NG PRN (08:58)
--- NOTE | 2020-08-16 09:00 | NUR ---
pt. placed on CPAP.PSV 8 pt. tolerating well no respiratory distress noted. pt completely off sedation.
[2020-08-16] MEDS: HEPARIN SODIUM,PORCINE 5,000 UNITS/ML VIAL SQ SCH ×2 (09:06→20:48)
[2020-08-16 10:05] LABS: ABG BASE EXCESS 3.2 mmol/L; ABG HCO3 27.5 mmol/L; ABG PCO2 40.9 mmHg (35.0-45.0); ABG PH 7.446 (7.350-7.450); ABG PO2 58.6 mmHg (75.0-100.0); ABG SITE RIGHT RADIAL; ABG TOTAL HEMOGLOBIN 10.7 G/dL (13.5-18.0); COHb 0.4 % (0.5-1.5); MetHb 0.4 % (0.0-1.5); O2Hb 89.5 % (94.0-97.0); VENT MODE VENT - CPAP - PS 8
--- NOTE | 2020-08-16 10:43 | NUR ---
Pulmonary services, Dr. Rincon in the unit to see and examine. pt. report given and orders to continue with care plan received.
[2020-08-16] MEDS ORDERED: DEXTROSE 50% 50 ML DISP.SYRIN IV PRN (11:45)
[2020-08-16] MEDS: BLOOD SUGAR DIAGNOSTIC 1 EACH STRIP VI SCH ×2 (12:16→17:54)
[2020-08-16] MEDS: INSULIN REGULAR, HUMAN 300 UNIT/3 ML VIAL SQ PRN ×2 (12:16→17:56)
--- NOTE | 2020-08-16 19:30 | NUR ---
Report received; care assumed. Patient on COVID-19 isolation orally intubated and to mechanical ventilator on CPAP with PS=8 and FIO2=30%. O2 saturations above 94%. Obtunded. Doesn't open eyes to name or pain facial grimacing noted. Extremities flaccid. Assessment done; see flow sheet for complete data. Addendum: 08/17/20 at 1538 by FANI STEWART RN Amended: Links added.
[2020-08-16] MEDS ORDERED: methylPREDNISolone SOD SUCC 40 MG/ML VIAL IV SCH (21:00)
[2020-08-16] MEDS ORDERED: CEFEPIME HCL 1 G in IV DEXTROSE 5% 50 ML IV SCH (21:00)
[2020-08-17] VITALS (24 sets, daily range): BP systolic 94–143; BP diastolic 59–100
[2020-08-17] MEDS: BLOOD SUGAR DIAGNOSTIC 1 EACH STRIP VI SCH ×4 (00:13→17:07)
[2020-08-17] MEDS: INSULIN REGULAR, HUMAN 300 UNIT/3 ML VIAL SQ PRN ×4 (00:15→17:09)
[2020-08-17] MEDS: IV NORMAL SALINE 250 ML IV PRN ×2 (03:58→22:39)
[2020-08-17 05:18] LABS: BASOPHILS % (AUTO) 0.1 % (0.0-2.0); HEMATOCRIT 29.3 % (36.7-47.1); HEMOGLOBIN 10.1 g/dL (12.5-16.3); LYMPHOCYTES # (AUTO) 0.3 K/uL (20.0-40.0); LYMPHOCYTES % (AUTO) 1.5 % (20.5-51.5); MEAN CORPUSCULAR HEMOGLOBIN 32.3 uug (23.8-33.4); MEAN CORPUSCULAR HGB CONC 34 g/dL (32.5-36.3); MEAN CORPUSCULAR VOLUME 93.8 fL (73.0-96.2); MONOCYTES # (AUTO) 0.6 K/uL (2.0-10.0); MONOCYTES % (AUTO) 3.2 % (0.0-11.0); NEUTROPHILS % (AUTO) 95.2 % (38.5-71.5); PLATELET COUNT (AUTO) 119 K/uL (152-348); RED BLOOD CELL COUNT(AUTO) 3.13 MIL/uL (4.06-5.63); WHITE BLOOD COUNT (AUTO) 18.9 K/uL (3.6-10.2)
[2020-08-17 05:29] LABS: CARBON DIOXIDE 32 mmol/L (21-32); CHLORIDE 111 mmol/L (98-107); CREATININE 3.7 mg/dL (0.6-1.3); GLUCOSE 183 mg/dL (74-106); POTASSIUM 3.9 mmol/L (3.5-5.1)
[2020-08-17 05:30] LABS: MAGNESIUM 2.6 mg/dL (1.8-2.4); PHOSPHOROUS 2.8 mg/dL (2.5-4.9)
[2020-08-17 05:45] LABS: UREA NITROGEN, BLOOD 115 mg/dL (7-18)
--- NOTE | 2020-08-17 06:26 | NUR ---
Remains on CPAP with FIO2=30% and PS=8; O2 saturations above 94%. Still very obtunded, with facial grimacing to pain but doesn't open eyes. VS stable. Addendum: 08/17/20 at 0626 by FANI STEWART RN Amended: Links added.
[2020-08-17] MEDS: FAMOTIDINE. 20 MG/2 ML VIAL IV SCH (08:17)
[2020-08-17] MEDS: AMIODARONE HCL 200 MG TABLET PO SCH ×2 (08:19→20:05)
[2020-08-17] MEDS: HEPARIN SODIUM,PORCINE 5,000 UNITS/ML VIAL SQ SCH ×2 (08:19→20:06)
[2020-08-17] MEDS: CLOTRIMAZOLE 1% CREAM 30 GM TUBE TOP SCH ×2 (08:20→16:51)
[2020-08-17] MEDS: Z GUARD REMEDY PASTE 57 GM TUBE TOP SCH ×2 (08:20→21:48)
[2020-08-17] MEDS: methylPREDNISolone SOD SUCC 125 MG/2 ML VIAL IV SCH ×2 (08:29→20:05)
[2020-08-17 09:37] LABS: ABG BASE EXCESS 4.5 mmol/L; ABG HCO3 26.4 mmol/L; ABG PCO2 29.9 mmHg (35.0-45.0); ABG PH 7.564 (7.350-7.450); ABG PO2 62.9 mmHg (75.0-100.0); ABG SITE RIGHT BRACHIAL; ABG TOTAL HEMOGLOBIN 10.2 G/dL (13.5-18.0); COHb 0.3 % (0.5-1.5); MetHb 0.2 % (0.0-1.5); O2Hb 93.1 % (94.0-97.0); VENT MODE VENT - CPAP - PS 8
[2020-08-17] MEDS: NEPRO 1000 ML NG PRN (09:47)
--- NOTE | 2020-08-17 11:00 | NUR ---
Attending Chito Blevins in to examine pt.
--- NOTE | 2020-08-17 13:00 | NUR ---
Pulmonary services Dr. Rincon in to examine pt. Orders to continue with care plan received.
--- NOTE | 2020-08-17 19:00 | NUR ---
Received patient. Off pressors and sedation. Patient still not arousable to name/touch. Likely due to the lengthy recovery process weaning off Versed/Fentanyl. Vital signs WNL except BP @ 155/100. Brower draining urine -- R Femoral PICC intact -- L Hugh Catheter .
[2020-08-17] MEDS: CEFEPIME HCL 2 G in IV DEXTROSE 5% 100 ML IV SCH (20:04)
[2020-08-17] MEDS: SODIUM HYPOCHLORITE 0.125% (QUARTER STRENGTH) 473 ML BOTTLE TP SCH ×2 (21:45→21:48)
[2020-08-18] VITALS (24 sets, daily range): BP systolic 88–147; BP diastolic 60–104
[2020-08-18] MEDS: BLOOD SUGAR DIAGNOSTIC 1 EACH STRIP VI SCH ×5 (00:20→23:39)
[2020-08-18] MEDS: INSULIN REGULAR, HUMAN 300 UNIT/3 ML VIAL SQ PRN ×5 (00:20→23:40)
[2020-08-18 05:17] LABS: BASOPHILS # (AUTO) 0.1 K/uL (0.0-8.0); BASOPHILS % (AUTO) 0.6 % (0.0-2.0); HEMATOCRIT 30.8 % (36.7-47.1); HEMOGLOBIN 10.2 g/dL (12.5-16.3); LYMPHOCYTES # (AUTO) 0.2 K/uL (20.0-40.0); LYMPHOCYTES % (AUTO) 0.8 % (20.5-51.5); MEAN CORPUSCULAR HEMOGLOBIN 31.5 uug (23.8-33.4); MEAN CORPUSCULAR HGB CONC 33 g/dL (32.5-36.3); MEAN CORPUSCULAR VOLUME 94.9 fL (73.0-96.2); MONOCYTES # (AUTO) 0.6 K/uL (2.0-10.0); MONOCYTES % (AUTO) 2.7 % (0.0-11.0); NEUTROPHILS # (AUTO) 21.4 K/uL (1.8-8.9); NEUTROPHILS % (AUTO) 95.9 % (38.5-71.5); PLATELET COUNT (AUTO) 122 K/uL (152-348); RED BLOOD CELL COUNT(AUTO) 3.25 MIL/uL (4.06-5.63); WHITE BLOOD COUNT (AUTO) 22.3 K/uL (3.6-10.2)
[2020-08-18 05:35] LABS: CARBON DIOXIDE 33 mmol/L (21-32); CHLORIDE 115 mmol/L (98-107); CREATININE 3.6 mg/dL (0.6-1.3); GLUCOSE 185 mg/dL (74-106); MAGNESIUM 2.4 mg/dL (1.8-2.4); PHOSPHOROUS 3.3 mg/dL (2.5-4.9); POTASSIUM 3.9 mmol/L (3.5-5.1)
[2020-08-18 05:37] LABS: UREA NITROGEN, BLOOD 130 mg/dL (7-18)
--- NOTE | 2020-08-18 07:19 | NUR ---
Handing patient off to AM nurse. All lines intact. No changes to CPAP settings. No drips running. Patient clean and safety measures in place. Plan of care continued. Patient still not arousable despite being off sedation. Vital signs within normal ranges. Endorsed information to AM nurse.
[2020-08-18] MEDS: FAMOTIDINE 20 MG TABLET NG SCH (08:12)
[2020-08-18] MEDS: methylPREDNISolone SOD SUCC 125 MG/2 ML VIAL IV SCH ×2 (08:12→21:03)
[2020-08-18] MEDS: Z GUARD REMEDY PASTE 57 GM TUBE TOP SCH ×2 (08:12→21:01)
[2020-08-18] MEDS: AMIODARONE HCL 200 MG TABLET PO SCH ×2 (08:15→21:03)
[2020-08-18] MEDS: NEPRO 1000 ML NG PRN (08:22)
[2020-08-18 08:24] LABS: ABG BASE EXCESS 5.3 mmol/L; ABG HCO3 28.2 mmol/L; ABG PCO2 35.2 mmHg (35.0-45.0); ABG PH 7.522 (7.350-7.450); ABG PO2 57.8 mmHg (75.0-100.0); ABG SITE RIGHT RADIAL; ABG TOTAL HEMOGLOBIN 10.4 G/dL (13.5-18.0); COHb 0.3 % (0.5-1.5); CPAP,BG 0 cmH20; MetHb 0.2 % (0.0-1.5); O2Hb 89.1 % (94.0-97.0); VENT MODE VENT - CPAP PS8
[2020-08-18] MEDS: CLOTRIMAZOLE 1% CREAM 30 GM TUBE TOP SCH ×2 (09:05→17:47)
[2020-08-18] MEDS: SODIUM HYPOCHLORITE 0.125% (QUARTER STRENGTH) 473 ML BOTTLE TP SCH (09:05)
[2020-08-18] MEDS: HEPARIN SODIUM,PORCINE 5,000 UNITS/ML VIAL SQ SCH ×2 (09:05→21:05)
--- NOTE | 2020-08-18 09:53 | NUR ---
Dr. Mcdonald in the unit to see pt with new orders. full report given
[2020-08-18] MEDS: IV D5 1/2 NS 1000 ML 1,000 ML IV PRN ×2 (10:25→23:25)
--- NOTE | 2020-08-18 11:09 | NUR ---
GLOVE PARTS INSPECTOR Kendrick Ang in the unit to see and assess pt. full report given
--- NOTE | 2020-08-18 12:15 | NUR ---
SHIPPING AND RECEIVING MATERIAL HANDLER Felicity Beyer here to see and assess pt. Per SHIPPING AND RECEIVING MATERIAL HANDLER, she will consult Neuro. full report given
--- NOTE | 2020-08-18 12:59 | NUR ---
WOUND CARE FOLLOW UP: REVIEWED CHART, NURSING DOCUMENTATION AND SPOKE WITH NURSING STAFF. DISCUSSED SKIN PROTECTION AND WOUND CARE RECOMMENDATIONS WITH MJ ORELLANA, SURGICAL P.A. AND RN. SACRAL DEEP TISSUE INJURY IS EVOLVING. DAKINS ORDER CLARIFIED. IN AGREEMENT WITH PLAN OF CARE.
--- NOTE | 2020-08-18 15:45 | NUR ---
Dr. Rincon in the unit to see and assess pt. full repot given
--- NOTE | 2020-08-18 16:20 | NUR ---
pt seen and assessed by Neuro Dr. Calderon
--- NOTE | 2020-08-18 19:13 | NUR ---
shift report given to weight shifter. VSS. full report given/ pt on CPAP PSV8, fiO2 30%. On IV D51/2NS @75ml/hr.
[2020-08-18] MEDS: IV NORMAL SALINE 250 ML IV PRN (19:20)
--- NOTE | 2020-08-18 19:30 | NUR ---
Report received. Patient admitted 08/09/20 DX: COVID-19, Respiratory Failure. Obtunded, orally intubated and to mechanical ventilator; on CPAP FIO2=30%, PS=8. O2 saturations above 95%. With facial grimacing to suctioning and care but doesn't open eyes. night monitor: SR with rare PACs. NGT feedings at 40 ml/H; no residual. Assessment done. Addendum: 08/19/20 at 0626 by FANI STEWART RN Amended: Links added. Addendum: 08/19/20 at 0630 by FANI STEWART RN Amended: Links added. Addendum: 08/19/20 at 0633 by FANI STEWART RN Amended: Links added.
[2020-08-18] MEDS: CEFEPIME HCL 2 G in IV DEXTROSE 5% 100 ML IV SCH (21:03)
[2020-08-19] VITALS (24 sets, daily range): BP systolic 95–145; BP diastolic 46–92
--- NOTE | 2020-08-19 02:00 | NUR ---
Am care rendered. Wound care treatment done. Patient noted to have short periods of apnea followed by abdominal breathing, but O2 saturations remain above 94% on FIO2=30%. Will monitor. Addendum: 08/19/20 at 0633 by FANI STEWART RN Amended: Links added.
[2020-08-19 05:16] LABS: HEMATOCRIT 26.1 % (36.7-47.1); HEMOGLOBIN 8.6 g/dL (12.5-16.3); LYMPHOCYTES # (AUTO) 0.1 K/uL (20.0-40.0); LYMPHOCYTES % (AUTO) 0.8 % (20.5-51.5); MEAN CORPUSCULAR HEMOGLOBIN 31.4 uug (23.8-33.4); MEAN CORPUSCULAR HGB CONC 33 g/dL (32.5-36.3); MEAN CORPUSCULAR VOLUME 95.1 fL (73.0-96.2); MONOCYTES # (AUTO) 0.1 K/uL (2.0-10.0); MONOCYTES % (AUTO) 0.9 % (0.0-11.0); NEUTROPHILS # (AUTO) 17.2 K/uL (1.8-8.9); NEUTROPHILS % (AUTO) 98.3 % (38.5-71.5); PLATELET COUNT (AUTO) 113 K/uL (152-348); RED BLOOD CELL COUNT(AUTO) 2.74 MIL/uL (4.06-5.63); WHITE BLOOD COUNT (AUTO) 17.5 K/uL (3.6-10.2)
[2020-08-19] MEDS: BLOOD SUGAR DIAGNOSTIC 1 EACH STRIP VI SCH ×3 (05:47→17:32)
[2020-08-19] MEDS: INSULIN REGULAR, HUMAN 300 UNIT/3 ML VIAL SQ PRN ×3 (05:48→17:39)
[2020-08-19 06:12] LABS: ALANINE AMINOTRANSFERASE 27 U/L (16-63); ALKALINE PHOSPHATASE 75 U/L (50-136); ASPARTATE AMINOTRANSFERASE 53 U/L (15-37); BILIRUBIN,DIRECT 0.1 mg/dL (0.0-0.2); BILIRUBIN,TOTAL 0.4 mg/dL (0.2-1.0); CARBON DIOXIDE 32 mmol/L (21-32); CHLORIDE 116 mmol/L (98-107); CREATININE 3.5 mg/dL (0.6-1.3); FERRITIN 1975 ng/mL (26-388); GLUCOSE 155 mg/dL (74-106); LACTATE DEHYDROGENASE 531 U/L (85-227); MAGNESIUM 2.3 mg/dL (1.8-2.4); PHOSPHOROUS 3.2 mg/dL (2.5-4.9); TOTAL PROTEIN, SERUM 4.5 g/dL (6.4-8.2)
--- NOTE | 2020-08-19 06:29 | NUR ---
Condition unchanged. Still with short episode of apnea followed by abdominal breathing, O2 sat remains above 94%. Tolerating NGT feedings well; off [id number]. Urine output adequate. monitoring manager: SR with rare PACs. Addendum: 08/19/20 at 0630 by FANI STEWART RN Amended: Links added. Addendum: 08/19/20 at 0633 by FANI STEWART RN Amended: Links added.
[2020-08-19 06:36] LABS: UREA NITROGEN, BLOOD 132 mg/dL (7-18)
[2020-08-19] MEDS: AMIODARONE HCL 200 MG TABLET PO SCH ×2 (08:10→22:54)
[2020-08-19] MEDS: HEPARIN SODIUM,PORCINE 5,000 UNITS/ML VIAL SQ SCH ×2 (08:10→22:57)
[2020-08-19] MEDS: methylPREDNISolone SOD SUCC 125 MG/2 ML VIAL IV SCH (08:11)
[2020-08-19] MEDS: Z GUARD REMEDY PASTE 57 GM TUBE TOP SCH ×2 (08:11→22:55)
[2020-08-19] MEDS: CLOTRIMAZOLE 1% CREAM 30 GM TUBE TOP SCH ×2 (08:11→16:33)
[2020-08-19] MEDS: SODIUM HYPOCHLORITE 0.125% (QUARTER STRENGTH) 473 ML BOTTLE TP SCH (08:12)
--- NOTE | 2020-08-19 08:29 | NUR ---
Spoke to Dr. Rincon via telephone. Informed MD that patient's CXR shows ET tube is 5.3cm above the level of the perlita and RT was asking by how much should they advance the ET tube by. Per MD, since there is no problem with the pt, VSS, O2 saturation 97-100%, there is no need to advance ET tube. Per MD, it is not that much above the perlita and placement is fine since pt stable.
[2020-08-19] MEDS: NEPRO 1000 ML NG PRN (08:37)
[2020-08-19] MEDS: FAMOTIDINE 20 MG TABLET NG SCH (09:26)
--- NOTE | 2020-08-19 09:36 | NUR ---
pt seen by Dr. Quentin Warner. full report given
[2020-08-19 10:09] LABS: ABG BASE EXCESS 2.9 mmol/L; ABG HCO3 25.4 mmol/L; ABG PCO2 30.9 mmHg (35.0-45.0); ABG PH 7.532 (7.350-7.450); ABG PO2 47.1 mmHg (75.0-100.0); ABG SITE LEFT RADIAL; ABG TOTAL HEMOGLOBIN 9.7 G/dL (13.5-18.0); COHb 0.8 % (0.5-1.5); MetHb 0.5 % (0.0-1.5); O2Hb 84.9 % (94.0-97.0); VENT MODE VENT - CPAP
[2020-08-19] MEDS: IV D5 1/2 NS 1000 ML 1,000 ML IV PRN (12:51)
--- NOTE | 2020-08-19 13:09 | NUR ---
COOK FRUIT Felicity Beyer in the unit to see pt. full report given
[2020-08-19] MEDS: IV NORMAL SALINE 250 ML IV PRN (16:32)
--- NOTE | 2020-08-19 17:40 | NUR ---
Dr. Rincon in the unit to see and assess pt, with new orders. full report given
--- NOTE | 2020-08-19 19:00 | NUR ---
Received patient from AM nurse. Patient has D5 1/2 NS running at 75cc/hr through his Right Femoral PICC line -- all other access at that port intact - dressing clean. Patient has ta draining Marlys/Yellow urine and a Rectal Tube with minimal output. Nepro running at 40cc/hr -- OGTube patent and auscultated for placement. Patient is off sedation but still not arousable to name or touch. Edema in all four extremities. Will monitor and assess.
--- NOTE | 2020-08-19 19:24 | NUR ---
shift report given to shift supervisor melting. VSS. pt on CPAP, PSV 8, FiO2 35%. tolerating tube feeding Nephro @40cc/hr x 22hrs
[2020-08-19] MEDS: methylPREDNISolone SOD SUCC 40 MG/ML VIAL IV SCH (22:54)
[2020-08-19] MEDS: CEFEPIME HCL 2 G in IV DEXTROSE 5% 100 ML IV SCH (23:03)
[2020-08-20] VITALS (24 sets, daily range): BP systolic 124–154; BP diastolic 65–100
[2020-08-20] MEDS: BLOOD SUGAR DIAGNOSTIC 1 EACH STRIP VI SCH ×5 (00:39→23:49)
[2020-08-20] MEDS: INSULIN REGULAR, HUMAN 300 UNIT/3 ML VIAL SQ PRN ×5 (00:43→23:50)
[2020-08-20] MEDS: IV D5 1/2 NS 1000 ML 1,000 ML IV PRN ×2 (03:29→16:52)
[2020-08-20 05:47] LABS: BASOPHILS % (AUTO) 0.2 % (0.0-2.0); HEMATOCRIT 28.1 % (36.7-47.1); HEMOGLOBIN 9.3 g/dL (12.5-16.3); LYMPHOCYTES # (AUTO) 0.2 K/uL (20.0-40.0); LYMPHOCYTES % (AUTO) 0.8 % (20.5-51.5); MEAN CORPUSCULAR HEMOGLOBIN 31.3 uug (23.8-33.4); MEAN CORPUSCULAR HGB CONC 33 g/dL (32.5-36.3); MEAN CORPUSCULAR VOLUME 95.2 fL (73.0-96.2); MONOCYTES # (AUTO) 0.3 K/uL (2.0-10.0); MONOCYTES % (AUTO) 1.5 % (0.0-11.0); NEUTROPHILS # (AUTO) 21.1 K/uL (1.8-8.9); NEUTROPHILS % (AUTO) 97.5 % (38.5-71.5); PLATELET COUNT (AUTO) 140 K/uL (152-348); RED BLOOD CELL COUNT(AUTO) 2.95 MIL/uL (4.06-5.63); WHITE BLOOD COUNT (AUTO) 21.7 K/uL (3.6-10.2)
[2020-08-20 05:53] LABS: CARBON DIOXIDE 29 mmol/L (21-32); CHLORIDE 118 mmol/L (98-107); GLUCOSE 185 mg/dL (74-106); MAGNESIUM 2.2 mg/dL (1.8-2.4); PHOSPHOROUS 3.2 mg/dL (2.5-4.9); POTASSIUM 4.1 mmol/L (3.5-5.1)
[2020-08-20 06:00] LABS: UREA NITROGEN, BLOOD 110 mg/dL (7-18)
[2020-08-20] MEDS: NEPRO 1000 ML NG PRN (08:00)
[2020-08-20] MEDS: AMIODARONE HCL 200 MG TABLET PO SCH ×2 (08:30→20:57)
[2020-08-20] MEDS: CLOTRIMAZOLE 1% CREAM 30 GM TUBE TOP SCH ×2 (08:30→13:09)
[2020-08-20] MEDS: Z GUARD REMEDY PASTE 57 GM TUBE TOP SCH ×2 (08:30→20:58)
[2020-08-20] MEDS: methylPREDNISolone SOD SUCC 40 MG/ML VIAL IV SCH (08:30)
[2020-08-20] MEDS: FAMOTIDINE 20 MG TABLET NG SCH (08:30)
[2020-08-20] MEDS: SODIUM HYPOCHLORITE 0.125% (QUARTER STRENGTH) 473 ML BOTTLE TP SCH (08:31)
[2020-08-20] MEDS: HEPARIN SODIUM,PORCINE 5,000 UNITS/ML VIAL SQ SCH ×2 (08:31→20:58)
--- NOTE | 2020-08-20 08:54 | NUR ---
Dr. Calderon here to see pt. Full report given. New orders received.
[2020-08-20 09:21] LABS: ABG BASE EXCESS 2.5 mmol/L; ABG HCO3 25.2 mmol/L; ABG PCO2 32.2 mmHg (35.0-45.0); ABG PH 7.512 (7.350-7.450); ABG PO2 78.8 mmHg (75.0-100.0); ABG SITE RIGHT RADIAL; ABG TOTAL HEMOGLOBIN 9.6 G/dL (13.5-18.0); COHb 0.5 % (0.5-1.5); MetHb 0.3 % (0.0-1.5); VENT MODE VENT - CPAP - PS 8
[2020-08-20] MEDS: MODAFINIL 100 MG TABLET PO SCH (09:24)
--- NOTE | 2020-08-20 11:06 | NUR ---
BODY DESIGNER Felicity Beyer here to see pt. Full report given. No new orders received.
--- NOTE | 2020-08-20 14:44 | NUR ---
Dr. Rincon here to see pt. Full report given. New orders received.
[2020-08-20] MEDS: METRONIDAZOLE 500 MG TABLET PO SCH (21:00)
[2020-08-21] VITALS (22 sets, daily range): BP systolic 123–156; BP diastolic 65–98
[2020-08-21] MEDS: IV D5 1/2 NS 1000 ML 1,000 ML IV PRN (04:11)
[2020-08-21] MEDS: METRONIDAZOLE 500 MG TABLET PO SCH ×3 (05:28→21:12)
[2020-08-21 05:39] LABS: CARBON DIOXIDE 29 mmol/L (21-32); CHLORIDE 118 mmol/L (98-107); CREATININE 2.7 mg/dL (0.6-1.3); GLUCOSE 129 mg/dL (74-106); MAGNESIUM 2.3 mg/dL (1.8-2.4); PHOSPHOROUS 3.1 mg/dL (2.5-4.9); POTASSIUM 3.9 mmol/L (3.5-5.1)
[2020-08-21 05:52] LABS: UREA NITROGEN, BLOOD 107 mg/dL (7-18)
[2020-08-21] MEDS: BLOOD SUGAR DIAGNOSTIC 1 EACH STRIP VI SCH ×3 (05:56→18:36)
[2020-08-21 05:58] LABS: BASOPHILS % (AUTO) 0.2 % (0.0-2.0); EOSINOPHILS # (AUTO) 0.1 K/uL (0.0-0.7); EOSINOPHILS % (AUTO) 0.4 % (0.0-7.0); HEMATOCRIT 28.7 % (36.7-47.1); HEMOGLOBIN 9.5 g/dL (12.5-16.3); LYMPHOCYTES # (AUTO) 0.4 K/uL (20.0-40.0); LYMPHOCYTES % (AUTO) 1.5 % (20.5-51.5); MEAN CORPUSCULAR HEMOGLOBIN 31.2 uug (23.8-33.4); MEAN CORPUSCULAR HGB CONC 33 g/dL (32.5-36.3); MEAN CORPUSCULAR VOLUME 94.6 fL (73.0-96.2); MONOCYTES # (AUTO) 0.5 K/uL (2.0-10.0); NEUTROPHILS # (AUTO) 23.5 K/uL (1.8-8.9); NEUTROPHILS % (AUTO) 95.9 % (38.5-71.5); PLATELET COUNT (AUTO) 170 K/uL (152-348); RED BLOOD CELL COUNT(AUTO) 3.03 MIL/uL (4.06-5.63); WHITE BLOOD COUNT (AUTO) 24.5 K/uL (3.6-10.2)
--- NOTE | 2020-08-21 06:49 | NUR ---
END of shift report Pt repositioned q2h; remains on Vent with CPAP setting, tolerated well; pt asleep / unconscious, did not open eyes when moved; wound care done and AM bath done; ; accucheck as charted; 0600 = 125 no coverage; 750 ml urine output overnight; 250 ml flexiseal output; pt's VS were stble overnight and has no fever; will endorse.
[2020-08-21] MEDS: MODAFINIL 100 MG TABLET PO SCH (08:00)
[2020-08-21] MEDS: methylPREDNISolone SOD SUCC 40 MG/ML VIAL IV SCH ×2 (08:01→21:11)
[2020-08-21] MEDS: AMIODARONE HCL 200 MG TABLET PO SCH ×2 (08:01→21:12)
[2020-08-21] MEDS: FAMOTIDINE 20 MG TABLET NG SCH (08:01)
[2020-08-21] MEDS: HEPARIN SODIUM,PORCINE 5,000 UNITS/ML VIAL SQ SCH ×2 (08:01→21:14)
[2020-08-21] MEDS: Z GUARD REMEDY PASTE 57 GM TUBE TOP SCH ×2 (08:02→21:14)
[2020-08-21] MEDS: CLOTRIMAZOLE 1% CREAM 30 GM TUBE TOP SCH ×2 (08:03→18:32)
[2020-08-21] MEDS: SODIUM HYPOCHLORITE 0.125% (QUARTER STRENGTH) 473 ML BOTTLE TP SCH (08:04)
[2020-08-21] MEDS: INSULIN REGULAR, HUMAN 300 UNIT/3 ML VIAL SQ PRN ×2 (14:20→18:37)
[2020-08-21] MEDS: IV D5W 1000ML 1,000 ML IV PRN (18:32)
[2020-08-22] VITALS (24 sets, daily range): BP systolic 107–156; BP diastolic 62–108
[2020-08-22] MEDS: NEPRO 1000 ML NG PRN ×2 (01:00→08:41)
[2020-08-22] MEDS: BLOOD SUGAR DIAGNOSTIC 1 EACH STRIP VI SCH ×4 (01:11→17:33)
[2020-08-22] MEDS: INSULIN REGULAR, HUMAN 300 UNIT/3 ML VIAL SQ PRN ×3 (01:12→17:35)
[2020-08-22 05:46] LABS: BASOPHILS % (AUTO) 0.1 % (0.0-2.0); HEMATOCRIT 28.9 % (36.7-47.1); HEMOGLOBIN 9.6 g/dL (12.5-16.3); LYMPHOCYTES # (AUTO) 0.2 K/uL (20.0-40.0); LYMPHOCYTES % (AUTO) 0.7 % (20.5-51.5); MEAN CORPUSCULAR HEMOGLOBIN 31.3 uug (23.8-33.4); MEAN CORPUSCULAR HGB CONC 33 g/dL (32.5-36.3); MONOCYTES # (AUTO) 0.6 K/uL (2.0-10.0); MONOCYTES % (AUTO) 2.2 % (0.0-11.0); NEUTROPHILS # (AUTO) 25.9 K/uL (1.8-8.9); PLATELET COUNT (AUTO) 196 K/uL (152-348); RED BLOOD CELL COUNT(AUTO) 3.07 MIL/uL (4.06-5.63); WHITE BLOOD COUNT (AUTO) 26.7 K/uL (3.6-10.2)
[2020-08-22 05:56] LABS: CARBON DIOXIDE 27 mmol/L (21-32); CHLORIDE 115 mmol/L (98-107); CREATININE 2.4 mg/dL (0.6-1.3); GLUCOSE 181 mg/dL (74-106); MAGNESIUM 2.1 mg/dL (1.8-2.4); PHOSPHOROUS 3.4 mg/dL (2.5-4.9); POTASSIUM 4.2 mmol/L (3.5-5.1)
[2020-08-22] MEDS: METRONIDAZOLE 500 MG TABLET PO SCH ×3 (06:48→21:01)
[2020-08-22 07:24] LABS: UREA NITROGEN, BLOOD 102 mg/dL (7-18)
[2020-08-22 08:13] LABS: ABG BASE EXCESS -1.6 mmol/L; ABG HCO3 21.5 mmol/L; ABG PCO2 30.8 mmHg (35.0-45.0); ABG PH 7.462 (7.350-7.450); ABG PO2 51.4 mmHg (75.0-100.0); ABG SITE RIGHT RADIAL; ABG TOTAL HEMOGLOBIN 10.1 G/dL (13.5-18.0); COHb 0.5 % (0.5-1.5); MetHb 0.6 % (0.0-1.5); O2Hb 86.7 % (94.0-97.0); VENT MODE VENT - CPAP - PS 8
[2020-08-22] MEDS: FAMOTIDINE 20 MG TABLET NG SCH (08:21)
[2020-08-22] MEDS: MODAFINIL 100 MG TABLET PO SCH (08:21)
[2020-08-22] MEDS: methylPREDNISolone SOD SUCC 40 MG/ML VIAL IV SCH ×2 (08:21→21:01)
[2020-08-22] MEDS: AMIODARONE HCL 200 MG TABLET PO SCH ×2 (08:22→21:01)
[2020-08-22] MEDS: HEPARIN SODIUM,PORCINE 5,000 UNITS/ML VIAL SQ SCH ×2 (08:23→21:02)
[2020-08-22] MEDS: CLOTRIMAZOLE 1% CREAM 30 GM TUBE TOP SCH ×2 (08:24→17:30)
[2020-08-22] MEDS: Z GUARD REMEDY PASTE 57 GM TUBE TOP SCH ×2 (08:24→21:03)
[2020-08-22] MEDS: SODIUM HYPOCHLORITE 0.125% (QUARTER STRENGTH) 473 ML BOTTLE TP SCH (08:25)
[2020-08-22] MEDS: IV D5W 1000ML 1,000 ML IV PRN ×2 (08:26→21:51)
[2020-08-23] VITALS (21 sets, daily range): BP systolic 116–162; BP diastolic 53–99
[2020-08-23] MEDS: BLOOD SUGAR DIAGNOSTIC 1 EACH STRIP VI SCH ×5 (00:54→23:50)
[2020-08-23] MEDS: INSULIN REGULAR, HUMAN 300 UNIT/3 ML VIAL SQ PRN ×4 (00:55→23:51)
[2020-08-23] MEDS: METRONIDAZOLE 500 MG TABLET PO SCH ×3 (05:58→21:07)
[2020-08-23 06:27] LABS: ABG HCO3 22.2 mmol/L; ABG PCO2 29.6 mmHg (35.0-45.0); ABG PH 7.492 (7.350-7.450); ABG PO2 59.3 mmHg (75.0-100.0); ABG SITE RIGHT RADIAL; CPAP,BG 8 cmH20
[2020-08-23] MEDS: FAMOTIDINE 20 MG TABLET NG SCH (08:29)
[2020-08-23] MEDS: AMIODARONE HCL 200 MG TABLET PO SCH ×2 (08:29→20:57)
[2020-08-23] MEDS: MODAFINIL 100 MG TABLET PO SCH (08:30)
[2020-08-23] MEDS: methylPREDNISolone SOD SUCC 40 MG/ML VIAL IV SCH ×2 (08:31→20:57)
[2020-08-23] MEDS: CLOTRIMAZOLE 1% CREAM 30 GM TUBE TOP SCH ×2 (08:34→17:20)
[2020-08-23] MEDS: HEPARIN SODIUM,PORCINE 5,000 UNITS/ML VIAL SQ SCH (08:35)
[2020-08-23] MEDS: SODIUM HYPOCHLORITE 0.125% (QUARTER STRENGTH) 473 ML BOTTLE TP SCH (09:16)
[2020-08-23] MEDS: Z GUARD REMEDY PASTE 57 GM TUBE TOP SCH ×2 (09:16→20:58)
--- NOTE | 2020-08-23 09:59 | NUR ---
Cardiology services Dr. Mcdonald in the unit to see and examine pt. full report given orders received see order hx.
--- NOTE | 2020-08-23 13:15 | NUR ---
A call from abatement worker director Ms. Clinton and as requested by her Dr. Calderon called to be reminded to read EEG results. Dr. Calderon call at this time and as stated by him "I'm on my way to [facility] and I'll be at [facility] within one hour". Ms. Clinton informed.
[2020-08-23] MEDS: IV D5W 1000ML 1,000 ML IV PRN (14:49)
--- NOTE | 2020-08-23 14:50 | NUR ---
Neurology services, Dr. Calderon in the unit to follow up on patient.
--- NOTE | 2020-08-23 14:51 | NUR ---
Pulmonary services Dr. Rincon in the unit to see and examine pt. Report given.
--- NOTE | 2020-08-23 19:30 | NUR ---
Report received. Patient on COVID-19 isolation orally intubated and attached to mechanical vent with same settings. O2 saturations 97-100% on 35% FIO2. Assessment done. Addendum: 08/23/20 at 2301 by FANI STEWART RN Amended: Links added. Addendum: 08/23/20 at 2303 by FANI STEWART RN Amended: Links added. Addendum: 08/23/20 at 2304 by FANI TAECHARATKIJ RN Amended: Links added. Addendum: 08/23/20 at 2304 by FANI STEWART RN Amended: Links added. Addendum: 08/23/20 at 2304 by FANI STEWART RN Amended: Links added. Addendum: 08/23/20 at 2304 by FANI STEWART RN Amended: Links added. Addendum: 08/23/20 at 5 by FANI STEWART RN Amended: Links added. Addendum: 08/23/20 at 2305 by FANI STEWART RN Amended: Links added. Addendum: 08/23/20 at 2305 by FANI STEWART RN Amended: Links added. Addendum: 08/23/20 at 2305 by FANI STEWART RN Amended: Links added. Addendum: 08/23/20 at 2305 by FANI STEWART RN Amended: Links added. Addendum: 08/23/20 at 2306 by FANI STEWART RN Amended: Links added. Addendum: 08/23/20 at 2306 by FANI STEWART RN Amended: Links added. Addendum: 08/23/20 at 2306 by FANI STEWART RN Amended: Links added.
--- NOTE | 2020-08-23 20:15 | NUR ---
RT at bedside. Turned and repositioned; sacral wound dressings intact. Skin care provided. HOB above 30 degrees at all times. With continuous OGT feedings at 40 ml/H; tolerated well. dynamometer tuner: SR with rare PACs. Addendum: 08/23/20 at 2303 by FANI STEWART RN Amended: Links added. Addendum: 08/23/20 at 2304 by FANI STEWART RN Amended: Links added. Addendum: 08/23/20 at 2304 by FANI STEWART RN Amended: Links added. Addendum: 08/23/20 at 2304 by FANI STEWART RN Amended: Links added. Addendum: 08/23/20 at 2304 by FANI STEWART RN Amended: Links added. Addendum: 08/23/20 at 2305 by FANI STEWART RN Amended: Links added. Addendum: 08/23/20 at 5 by FANI STEWART RN Amended: Links added. Addendum: 08/23/20 at 5 by FANI STEWART RN Amended: Links added. Addendum: 08/23/20 at 2305 by FANI STEWART RN Amended: Links added. Addendum: 08/23/20 at 2305 by FANI STEWART RN Amended: Links added. Addendum: 08/23/20 at 2306 by FANI STEWART RN Amended: Links added. Addendum: 08/23/20 at 2306 by FANI STEWART RN Amended: Links added. Addendum: 08/23/20 at 2306 by FANI STEWART RN Amended: Links added.
[2020-08-24] VITALS (25 sets, daily range): BP systolic 100–152; BP diastolic 57–87
[2020-08-24] MEDS: IV D5W 1000ML 1,000 ML IV PRN (03:56)
[2020-08-24 05:16] LABS: BASOPHILS % (AUTO) 0.1 % (0.0-2.0); HEMATOCRIT 26.7 % (36.7-47.1); HEMOGLOBIN 8.7 g/dL (12.5-16.3); LYMPHOCYTES # (AUTO) 0.3 K/uL (20.0-40.0); LYMPHOCYTES % (AUTO) 1.4 % (20.5-51.5); MEAN CORPUSCULAR HEMOGLOBIN 30.5 uug (23.8-33.4); MEAN CORPUSCULAR HGB CONC 33 g/dL (32.5-36.3); MEAN CORPUSCULAR VOLUME 93.7 fL (73.0-96.2); MONOCYTES # (AUTO) 0.3 K/uL (2.0-10.0); MONOCYTES % (AUTO) 1.5 % (0.0-11.0); NEUTROPHILS # (AUTO) 19.7 K/uL (1.8-8.9); PLATELET COUNT (AUTO) 199 K/uL (152-348); RED BLOOD CELL COUNT(AUTO) 2.85 MIL/uL (4.06-5.63); WHITE BLOOD COUNT (AUTO) 20.3 K/uL (3.6-10.2)
[2020-08-24 05:28] LABS: CARBON DIOXIDE 27 mmol/L (21-32); CHLORIDE 105 mmol/L (98-107); CREATININE 2.2 mg/dL (0.6-1.3); GLUCOSE 143 mg/dL (74-106); PHOSPHOROUS 3.3 mg/dL (2.5-4.9); POTASSIUM 4.3 mmol/L (3.5-5.1)
[2020-08-24 05:30] LABS: UREA NITROGEN, BLOOD 100 mg/dL (7-18)
[2020-08-24] MEDS: METRONIDAZOLE 500 MG TABLET PO SCH ×3 (06:11→21:24)
[2020-08-24] MEDS: BLOOD SUGAR DIAGNOSTIC 1 EACH STRIP VI SCH ×3 (06:14→18:04)
--- NOTE | 2020-08-24 06:30 | NUR ---
Status quo. Remains on CPAP with FIO2=35% and PS=8; Saturations above 94%.
--- NOTE | 2020-08-24 07:15 | NUR ---
Received report from shift coordinator nurse,patient in bed obtunded on viky vent with ETT 7.5 23cm at the lip line, cpap mode 35% fio2. Patient has OG tube clamped, ta intact, and rectal tube in place both draining appropriately. sinus rhythm on the monitor, patient saturation is 99%. Bed in low position, side rails up x2. All alarms checked.
[2020-08-24 08:23] LABS: ABG BASE EXCESS 0.1 mmol/L; ABG HCO3 23.3 mmol/L; ABG PCO2 32.3 mmHg (35.0-45.0); ABG PH 7.476 (7.350-7.450); ABG PO2 59.6 mmHg (75.0-100.0); ABG SITE LEFT RADIAL; ABG TOTAL HEMOGLOBIN 9.4 G/dL (13.5-18.0); COHb 0.7 % (0.5-1.5); MetHb 0.4 % (0.0-1.5); O2Hb 90.4 % (94.0-97.0); VENT MODE VENT - CPAP
[2020-08-24] MEDS: Z GUARD REMEDY PASTE 57 GM TUBE TOP SCH ×2 (08:42→21:20)
[2020-08-24] MEDS: SODIUM HYPOCHLORITE 0.125% (QUARTER STRENGTH) 473 ML BOTTLE TP SCH (08:42)
[2020-08-24] MEDS: FAMOTIDINE 20 MG TABLET NG SCH (08:42)
[2020-08-24] MEDS: MODAFINIL 100 MG TABLET PO SCH (08:42)
[2020-08-24] MEDS: AMIODARONE HCL 200 MG TABLET PO SCH ×2 (08:42→21:17)
[2020-08-24] MEDS: CLOTRIMAZOLE 1% CREAM 30 GM TUBE TOP SCH ×2 (08:42→17:00)
[2020-08-24] MEDS: methylPREDNISolone SOD SUCC 40 MG/ML VIAL IV SCH ×2 (08:43→21:16)
[2020-08-24] MEDS: INSULIN REGULAR, HUMAN 300 UNIT/3 ML VIAL SQ PRN ×2 (12:53→18:05)
--- NOTE | 2020-08-24 18:39 | NUR ---
Patient seen by Dr. Warner, orders received to stop D5W.
--- NOTE | 2020-08-24 18:40 | NUR ---
Patient continues to be obtunded without sedation, ETT 7.5 23cm, CPAP mode. DUMONT intact and noted to have a significant amount of sediment and is cloudy. Rectal tube intact and draining appropriately. Patients wound care performed today, air mattress inflated and patient frequently repositioned. Patient is in sinus rhythm, hemodynamically stable, and afebrile throughout shift. Bed in low position, side rails up x2.
--- NOTE | 2020-08-24 19:10 | NUR ---
RECEIVED PATIENT , NON RESPONSIVE , NO SPONTANEOUS EYE OPENING , CPAP 8 , OGT FEEDING AT 40 ML , PLACEMENT AND RESIDUAL CHECKED , CHIQUIS CATH INTACT AND CENTRAL LINE INTACT , RECTAL TUBE INTACT . .
[2020-08-25] VITALS (39 sets, daily range): BP systolic 0–169; BP diastolic 0–94
[2020-08-25] MEDS: BLOOD SUGAR DIAGNOSTIC 1 EACH STRIP VI SCH ×3 (00:18→12:22)
[2020-08-25] MEDS: INSULIN REGULAR, HUMAN 300 UNIT/3 ML VIAL SQ PRN ×2 (00:38→06:34)
--- NOTE | 2020-08-25 01:43 | NUR ---
switched to ac 24 tv 450 , 8 , 80 fio2 %
--- NOTE | 2020-08-25 01:43 | NUR ---
labored shallow breathing , saturating on the 80 " s ,
--- NOTE | 2020-08-25 02:08 | NUR ---
p 5 , fio2 at 100 % , still labored breathing but saturating 9 2 %
--- NOTE | 2020-08-25 04:30 | NUR ---
srini lula is called and informed of sustaining low blood pressure , waiting for call back
[2020-08-25] MEDS ORDERED: IV NS 1000 ML 1,000 ML IV PRN (05:00)
--- NOTE | 2020-08-25 05:04 | NUR ---
srini cotton called about low blood pressure, received orders of ns at 80 ml and levophed
[2020-08-25] MEDS ORDERED: NOREPINEPHRINE BITARTRATE 4 MG/4 ML VIAL IV ONE (05:25)
[2020-08-25 05:36] LABS: BASOPHILS % (AUTO) 0.1 % (0.0-2.0); EOSINOPHILS % (AUTO) 0.1 % (0.0-7.0); HEMATOCRIT 24.5 % (36.7-47.1); HEMOGLOBIN 8.3 g/dL (12.5-16.3); LYMPHOCYTES # (AUTO) 0.2 K/uL (20.0-40.0); LYMPHOCYTES % (AUTO) 2.4 % (20.5-51.5); MEAN CORPUSCULAR HEMOGLOBIN 31.6 uug (23.8-33.4); MEAN CORPUSCULAR HGB CONC 34 g/dL (32.5-36.3); MEAN CORPUSCULAR VOLUME 93.4 fL (73.0-96.2); MONOCYTES # (AUTO) 0.1 K/uL (2.0-10.0); MONOCYTES % (AUTO) 1.2 % (0.0-11.0); NEUTROPHILS # (AUTO) 8.6 K/uL (1.8-8.9); NEUTROPHILS % (AUTO) 96.2 % (38.5-71.5); PLATELET COUNT (AUTO) 161 K/uL (152-348); RED BLOOD CELL COUNT(AUTO) 2.63 MIL/uL (4.06-5.63); WHITE BLOOD COUNT (AUTO) 8.9 K/uL (3.6-10.2)
[2020-08-25] MEDS: NOREPINEPHRINE BITARTRATE 8 MG in IV NORMAL SALINE 242 ML IV PRN ×2 (05:40→07:41)
[2020-08-25 05:42] LABS: CARBON DIOXIDE 28 mmol/L (21-32); CHLORIDE 106 mmol/L (98-107); CREATININE 2.4 mg/dL (0.6-1.3); GLUCOSE 97 mg/dL (74-106); MAGNESIUM 1.8 mg/dL (1.8-2.4); PHOSPHOROUS 4.1 mg/dL (2.5-4.9); POTASSIUM 4.4 mmol/L (3.5-5.1)
[2020-08-25 05:48] LABS: UREA NITROGEN, BLOOD 100 mg/dL (7-18)
[2020-08-25] MEDS: METRONIDAZOLE 500 MG TABLET PO SCH (05:48)
--- NOTE | 2020-08-25 06:00 | NUR ---
labored breathing with kussmaul breathing , levophed at 1 mcg , ns at 80 ml , ac 24 tv 450 p 5 at 100 fi02 % , feeding is clamped as ordered and flushed , pacement and residual checked , no fever ,
[2020-08-25] MEDS ORDERED: PHENYLEPHRINE IV 50 MG in IV NORMAL SALINE 245 ML IV PRN (06:30)
--- NOTE | 2020-08-25 07:15 | NUR ---
Received report from casino shift manager nurse, patient in bed nonresponsive and intubated with ET Tube 7.5 23cm at the lip line. A/C 24, TV 450, 100% fio2, Peep 5. Brower draining cloudy urine with sediment, and rectal tube in place. Patient is on air mattress, bed in low position side rails up x2. Patient has levophed running at 0.06mcg/kg/min, IVF NS running at 80%.
--- NOTE | 2020-08-25 08:00 | NUR ---
Tube feeding initiated as ordered, no residual noted, placement checked.
[2020-08-25 08:14] LABS: ABG BASE EXCESS -5.6 mmol/L; ABG HCO3 23.6 mmol/L; ABG PH 7.165 (7.350-7.450); ABG PO2 63.1 mmHg (75.0-100.0); ABG SITE LEFT RADIAL; ABG TOTAL HEMOGLOBIN 10.5 G/dL (13.5-18.0); COHb 0.4 % (0.5-1.5); MetHb 0.5 % (0.0-1.5); O2Hb 84.5 % (94.0-97.0); VENT MODE VENT - PRVC; VT, ABG 450 mL
[2020-08-25] MEDS: MODAFINIL 100 MG TABLET PO SCH (08:17)
[2020-08-25] MEDS: FAMOTIDINE 20 MG TABLET NG SCH (08:17)
[2020-08-25] MEDS: AMIODARONE HCL 200 MG TABLET PO SCH (08:18)
[2020-08-25] MEDS: Z GUARD REMEDY PASTE 57 GM TUBE TOP SCH (08:19)
[2020-08-25] MEDS: CLOTRIMAZOLE 1% CREAM 30 GM TUBE TOP SCH (08:19)
[2020-08-25] MEDS: methylPREDNISolone SOD SUCC 40 MG/ML VIAL IV SCH (08:19)
[2020-08-25] MEDS: SODIUM HYPOCHLORITE 0.125% (QUARTER STRENGTH) 473 ML BOTTLE TP SCH (08:20)
[2020-08-25] MEDS ORDERED: NOREPINEPHRINE BITARTRATE 32 MG in IV NORMAL SALINE 218 ML IV PRN (10:15)
[2020-08-25] MEDS ORDERED: ALBUMIN HUMAN 25% 50 ML IV ONE (11:00)
--- NOTE | 2020-08-25 11:01 | NUR ---
Park Guide note: Patient continues to remain unresponsive. [facility] unable to interview patient. Patient is homeless, and was brought in to the ED by EMS on 08/09/20. Patient was living in a van/. Per EMS log, patient [place] parked [place] [id number] [facility], [id number]. Other homeless individuals near the patient told EMS that patient's first name is Tone. No other information is known. At this time, there is no next-of-kin. Dr. Frye and U STEPAN Suarez have been informed. Addendum: 08/25/20 at 1115 by STACEY TALAVERA SADAF also informed Dr. Mcdonald of above.
[2020-08-25] MEDS ORDERED: LORAZEPAM 2 MG/1 ML VIAL IV PRN (13:00)
[2020-08-25] MEDS ORDERED: MORPHINE SULFATE 2 MG/1 ML DISP.SYRIN IV PRN (13:00)
--- NOTE | 2020-08-25 13:15 | NUR ---
Patient terminally extubated as ordered, OG tube removed and all IV pressors and medications stopped as ordered.
--- NOTE | 2020-08-25 14:08 | NUR ---
Patient noted to be asystole on the monitor, no palpable pulses, no audible heart sounds for 1 minute. Patient is apneic for 5 minutes, no chest rise and oxygen saturation nondetectable. Patient does not have a detectable blood pressure. Pupils fixed and dilated, no corneal reflexes and nonresponsive.
[2020-08-25] MEDS ORDERED: FUROSEMIDE 40 MG/4 ML VIAL IV ONE (15:00)
--- NOTE | 2020-08-25 16:30 | NUR ---
SW met with [facility] [employer] [facility] [employer] [facility] Clerk Nora Buckley, who informed this SW that in her attempt to find identifying information on the patient, Nora had travelled to the EMS pick-up address [address] [place] [address], but had not found a van/RV or any individuals there who were aware of the patient. Nora stated that she was also not able to locate any information or contact lens polisher for the patient.
[2020-08-25] MEDS ORDERED: PROTEIN SUPPLEMENT (PROSTAT) 30 ML LIQUID GT SCH (17:00)
--- NOTE | 2020-08-25 17:00 | NUR ---
Decedents belongings secured to include a cellphone, and personal clothing item. Cellphone transferred to nursing office with chart and clothing item to morgue with decedents body in double bag.
== END 2020-08-25 14:08 | disposition expired | DRG 870 ==
LOC: ER 11:57 → TRANSITION 19:20 → CCU 08-11 16:27
PROVIDERS: ADMIT Family Medicine; ATTEND Nurse Practitioner Family
PROC: 5A1955Z Respiratory Ventilation, Greater than 96 Consecutive Hours (ICD-10-PCS; principal; 2020-08-09)
PROC: 0BH17EZ Insertion of Endotracheal Airway into Trachea, Via Natural or Artificial Opening (ICD-10-PCS; 2020-08-09)
PROC: 06HM33Z Insertion of Infusion Device into Right Femoral Vein, Percutaneous Approach (ICD-10-PCS; 2020-08-09)
PROC: 5A12012 Performance of Cardiac Output, Single, Manual (ICD-10-PCS; 2020-08-10)
PROC: 06HY33Z Insertion of Infusion Device into Lower Vein, Percutaneous Approach (ICD-10-PCS; 2020-08-12)
DX: A41.89 Other specified sepsis (principal); J96.01 Acute respiratory failure with hypoxia; N17.0 Acute kidney failure with tubular necrosis; R65.21 Severe sepsis with septic shock; U07.1 COVID-19; J12.82 Pneumonia due to coronavirus disease 2019; J14 Pneumonia due to Hemophilus influenzae; E43 Unspecified severe protein-calorie malnutrition; G92 Toxic encephalopathy; I21.A1 Myocardial infarction type 2; J96.02 Acute respiratory failure with hypercapnia; R40.2112 Coma scale, eyes open, never, at arrival to emergency department; R40.2212 Coma scale, best verbal response, none, at arrival to emergency department; R40.2342 Coma scale, best motor response, flexion withdrawal, at arrival to emergency department; I63.9 Cerebral infarction, unspecified; J93.83 Other pneumothorax; I82.451 Acute embolism and thrombosis of right peroneal vein; E87.2 Acidosis; E87.1 Hypo-osmolality and hyponatremia; R17 Unspecified jaundice; J98.11 Atelectasis; K92.2 Gastrointestinal hemorrhage, unspecified; G93.40 Encephalopathy, unspecified; P91.60 Hypoxic ischemic encephalopathy [HIE], unspecified; T79.7XXA Traumatic subcutaneous emphysema, initial encounter; Z51.5 Encounter for palliative care; I46.9 Cardiac arrest, cause unspecified; Z59.0 Homelessness; E83.41 Hypermagnesemia; E86.0 Dehydration; E87.5 Hyperkalemia; F17.210 Nicotine dependence, cigarettes, uncomplicated; Z66 Do not resuscitate; D53.9 Nutritional anemia, unspecified; I48.0 Paroxysmal atrial fibrillation; R73.9 Hyperglycemia, unspecified; E88.09 Other disorders of plasma-protein metabolism, not elsewhere classified; Z68.20 Body mass index [BMI] 20.0-20.9, adult; N18.9 Chronic kidney disease, unspecified; M62.50 Muscle wasting and atrophy, not elsewhere classified, unspecified site; L89.156 Pressure-induced deep tissue damage of sacral region; L89.150 Pressure ulcer of sacral region, unstageable; L89.326 Pressure-induced deep tissue damage of left buttock; L89.316 Pressure-induced deep tissue damage of right buttock
CPT/HCPCS: 36415; 36556; 36600; 51702; 70030-TC; 70450; 71045; 71260; 76700; 83605; 83615; 83690; 83735; 84100; 85018; 85025; 85730; 86140; 86850; 86900; 86901; 87040; 87070; 87077; 87086; 93005; 93307; 94003; 95819; A4663; C9113; G0378; J0171; J0282; J0330; J0692; J1100; J1644; J1650; J1815; J2250; J2370; J2405; J2543; J2920; J2930; J3010; J3370; J3490; J7030; J7040; J7050; J7060; J7070; P9047; Q9967; U0003